=== PATIENT | male | born 1950 | race Caucasian/White ===

== ENCOUNTER 2017-12-15 09:13 | Emergency (ER) | payer MEDICARE, BC ==
[2017-12-15 10:00] VITALS: BP 141/68
[2017-12-15 11:05] LABS: ANION GAP 17.4
--- NOTE | 2017-12-15 11:07 | EDM.PDOC ---
ED HPI GENERAL MEDICAL PROBLEM - General Chief Complaint: Genitourinary Problem Stated Complaint: BLADDER NOT EMPTYING Time Seen by Provider: 12/15/17 10:35 Source of Information: Reports: Patient History Limitations: Reports: No Limitations - History of Present Illness INITIAL COMMENTS - FREE TEXT/NARRATIVE: This 67 yo male patient reports to the ED due to urinary frequency and hesitancy. The patient reports his symptoms started 2-3 days ago and have been getting worse. The patient is a dialysis patient and is scheduled for dialysis at 1130 today. The patient also reports pain in the end of his penis. Onset Date: 12/13/17 Duration: Constant Location: Reports: Other Quality: Reports: Burning Severity: Moderate Improves with: Reports: None Worsens with: Reports: None Context: Reports: Other Associated Symptoms: Reports: No Other Symptoms Penis Pain Score (Numeric/FACES): 4 - Related Data Allergies Allergy/AdvReac Type Severity Reaction Status Date / Time No Known Allergies Allergy Verified 12/15/17 09:47 Home Meds: Home Meds Allopurinol 100 mg PO BEDTIME 01/06/15 [History] Amitriptyline [Elavil] 25 mg PO BEDTIME 01/06/15 [History] Hydrocodone/Acetaminophen [Hydrocodon-Acetaminoph 2.5-325] 5 - 325 mg PO Q6HR PRN 01/06/15 [History] Insulin Lispro [HumaLOG] 15 units SQ TID 01/06/15 [History] Metoprolol Tartrate 25 mg PO BID 01/21/15 [History] Insulin Glargine,Hum.Rec.Anlog [Basaglar Kwikpen U-100] 55 units SQ BTHMEALBED 12/15/17 [History] Multivitamin [Multivitamins] 1 tab PO DAILY 12/15/17 [History] Omeprazole Magnesium [Prilosec Otc] 20 mg PO DAILY 12/15/17 [History] Sevelamer Carbonate [Renvela] 1,600 mg PO TID 12/15/17 [History] Past Medical History - Past Health History Medical/Surgical History: Denies Medical/Surgical History Cardiovascular History: Reports: Other (See Below) Other Cardiovascular History: myocardial effusions Genitourinary History: Reports: Dialysis Musculoskeletal History: Reports: Other (See Below) Other Musculoskeletal History: diabetic neuropathy Psychiatric History: Reports: None Endocrine/Metabolic History: Reports: Diabetes, Type II Immunologic History: Reports: None Oncologic (Cancer) History: Reports: None Social & Family History - Tobacco Use Smoking Status *Q: Former Smoker Used Tobacco, but Quit: Yes Month/Year Tobacco Last Used: 1969 - Living Situation & Occupation Living situation: Reports: , with Spouse Occupation: Disabled ED ROS GENERAL - Review of Systems Review Of Systems: ROS reveals no pertinent complaints other than HPI. ED EXAM, RENAL/ - Physical Exam Exam: See Below Exam Limited By: No Limitations General Appearance: Alert, WD/WN, Mild Distress Eye Exam: Bilateral Eye: EOMI, Normal Inspection, PERRL Ears: Normal External Exam, Normal Canal, Hearing Grossly Normal, Normal TMs Nose: Normal Inspection, Normal Mucosa, No Blood Throat/Mouth: Normal Inspection, Normal Lips, Normal Teeth, Normal Gums, Normal Oropharynx, Normal Voice, No Airway Compromise Head: Atraumatic, Normocephalic Neck: Normal Inspection, Supple, Non-Tender, Full Range of Motion Respiratory/Chest: No Respiratory Distress, Lungs Clear, Normal Breath Sounds, No Accessory Muscle Use, Chest Non-Tender Cardiovascular: Normal Peripheral Pulses, No Edema, No Gallop, No JVD, No Rub, Systolic Murmur (Male) Exam: Deferred Rectal (Males) Exam: Deferred Back Exam: Normal Inspection, Full Range of Motion, NT Extremities: Normal Inspection, Normal Range of Motion, Non-Tender, Normal Capillary Refill, No Pedal Edema Neurological: Alert, Oriented, CN II-XII Intact, Normal Cognition, Normal Gait, Normal Reflexes, No Motor/Sensory Deficits Psychiatric: Normal Affect, Normal Mood Skin Exam: Warm, Dry, Intact, Normal Color, No Rash Lymphatic: No Adenopathy Course - Vital Signs Last Recorded V/S: Last Vital Signs Temp 36.9 C 12/15/17 09:44 Pulse 71 12/15/17 09:44 Resp 20 12/15/17 09:44 BP 141/68 H 12/15/17 09:44 Pulse Ox 97 12/15/17 09:44 - Orders/Labs/Meds Orders: Active Orders 24 hr Category Date Time Status COMPREHENSIVE METABOLIC PN,CMP [CHEM] Urgent Lab 12/15/17 10:24 Ordered CULTURE URINE [RM] Stat Lab 12/15/17 10:40 Ordered Labs: Laboratory Tests 12/15/17 12/15/17 Range/Units 09:23 10:33 WBC 14.3 H (5.0-10.0) 10^3/uL RBC 3.75 L (4.6-6.2) 10^6/uL Hgb 11.7 L (14.0-18.0) g/dL Hct 35.5 L (40.0-54.0) % MCV 94.7 (80-100) fL MCH 31.2 (27.0-34.0) pg MCHC 33.0 (33.0-35.0) g/dL Plt Count 293 D (150-450) 10^3/uL Neut % (Auto) 78.7 H (42.2-75.2) % Lymph % (Auto) 10.1 L (20.5-50.1) % [place] % (Auto) 8.9 H (2-8) % Eos % (Auto) 2.0 (1.0-3.0) % Baso % (Auto) 0.3 (0.0-1.0) % Urine Color Yellow (YELLOW) Urine Appearance Cloudy (CLEAR) Urine pH 7.0 (5.0-9.0) Ur Specific [place] 1.015 (1.005-1.030) Urine Protein >=300 H (NEGATIVE) Urine Glucose (UA) Negative (NEGATIVE) Urine Ketones Trace H (NEGATIVE) Urine Occult Blood Moderate H (NEGATIVE) Urine Nitrite Negative (NEGATIVE) Urine Bilirubin Negative (NEGATIVE) Urine Urobilinogen 0.2 (0.2-1.0) mg/dL Ur Leukocyte Esterase Moderate H (NEGATIVE) Urine RBC 75-100 H /HPF Urine WBC >100 H (0-5/HPF) /HPF Ur Epithelial Cells Few /HPF Urine Bacteria Moderate H (0-FEW/HPF) /HPF Urinalysis Comment See note - Re-Assessments/Exams Free Text/Narrative Re-Assessment/Exam: 12/15/17 11:07 Discussed the history, examination and lab results with KENA Luke with Dr. Hicks's office. Departure - Departure Time of Disposition: 11:09 Disposition: Home, Self-Care 01 Condition: Fair Clinical Impression: UTI, Urinary tract infectious disease - Discharge Information *PRESCRIPTION DRUG MONITORING PROGRAM REVIEWED*: Not Applicable *COPY OF PRESCRIPTION DRUG MONITORING REPORT IN PATIENT ZAY: Not Applicable Instructions: Urinary Tract Infection, Adult, [id number] Care Plan Goals: The patient was advised of the examination and lab results during the visit. The patient was given a script for Cipro (250 mg) to take 1 by mouth 2 times per day (after dialysis) for 5 days. If the patient has any additional symptoms or concerns, the patient should follow-up with his primary care facility or return to the emergency department. - My Orders Last 24 Hours: My Active Orders 12/15/17 10:24 COMPREHENSIVE METABOLIC PN,CMP [CHEM] Urgent 12/15/17 10:40 CULTURE URINE [RM] Stat - Assessment/Plan Last 24 Hours: My Active Orders 12/15/17 10:24 COMPREHENSIVE METABOLIC PN,CMP [CHEM] Urgent 12/15/17 10:40 CULTURE URINE [RM] Stat
== END 2017-12-15 11:17 | disposition home or self-care (01) ==
LOC: EEVIPCON 09:13 → DL.ED 09:13
DX: N39.0 Urinary tract infection, site not specified (principal); E11.40 Type 2 diabetes mellitus with diabetic neuropathy, unspecified; Z87.891 Personal history of nicotine dependence
CPT/HCPCS: 36415; 80053; 81001; 85025; 87086; 87186; 99283

== ENCOUNTER 2018-01-11 07:39 | Emergency (ER) | payer MEDICARE, BC ==
[2018-01-11 07:46] VITALS: BP 152/71
[2018-01-11 08:52] LABS: ANION GAP 15.9
--- NOTE | 2018-01-11 09:06 | EDM.PDOC ---
ED HPI GENERAL MEDICAL PROBLEM - General Chief Complaint: Respiratory Problem Stated Complaint: hard time breathing [id number] Time Seen by Provider: 01/11/18 07:57 Source of Information: Reports: Patient, RN, RN Notes Reviewed History Limitations: Reports: No Limitations - History of Present Illness INITIAL COMMENTS - FREE TEXT/NARRATIVE: Patient presented to ER with complaint of shortness of breath for the past few weeks. He states last night at 0300, he felt as if he couldn't get a deep breath in, and had a "twinge" in the right upper chest. He states he does hemodialysis on Friday, Friday and Friday. He was recently started on Furosemide as he still does make some urine. Onset: Gradual Duration: Getting Worse Location: Reports: Chest Quality: Reports: Ache Severity: Mild Improves with: Reports: None Worsens with: Reports: None Associated Symptoms: Reports: No Other Symptoms - Related Data Allergies Allergy/AdvReac Type Severity Reaction Status Date / Time No Known Allergies Allergy Verified 01/11/18 07:46 Home Meds: Home Meds Allopurinol 100 mg PO BEDTIME 01/06/15 [History] Insulin Lispro [HumaLOG] 15 units SQ TID 01/06/15 [History] Metoprolol Tartrate 25 mg PO BID 01/21/15 [History] Insulin Glargine,Hum.Rec.Anlog [Basaglar Kwikpen U-100] 55 units SQ BTHMEALBED 12/15/17 [History] Multivitamin [Multivitamins] 1 tab PO DAILY 12/15/17 [History] Cinacalcet [Sensipar] 30 mg PO ASDIRECTED 12/17/17 [History] Clopidogrel [Plavix] 75 mg PO DAILY 12/17/17 [History] Furosemide [Lasix] 60 mg PO DAILY 01/11/18 [History] Past Medical History - Past Health History Medical/Surgical History: Denies Medical/Surgical History HEENT History: Reports: Impaired Vision Cardiovascular History: Reports: Afib, Other (See Below) Other Cardiovascular History: myocardial effusions Genitourinary History: Reports: Dialysis Musculoskeletal History: Reports: Gout, Other (See Below) Other Musculoskeletal History: diabetic neuropathy Psychiatric History: Reports: None Endocrine/Metabolic History: Reports: Diabetes, Type II Immunologic History: Reports: None Oncologic (Cancer) History: Reports: None - Past Surgical History GI Surgical History: Reports: Cholecystectomy Social & Family History - Tobacco Use Smoking Status *Q: Former Smoker Used Tobacco, but Quit: Yes Month/Year Tobacco Last Used: 1973 - Recreational Drug Use Recreational Drug Use: No - Living Situation & Occupation Living situation: Reports: , with Spouse Occupation: Disabled ED ROS GENERAL - Review of Systems Review Of Systems: ROS reveals no pertinent complaints other than HPI. ED EXAM, GENERAL - Physical Exam Exam: See Below Exam Limited By: No Limitations General Appearance: Alert, WD/WN, No Apparent Distress Eye Exam: Bilateral Eye: EOMI, Normal Inspection, PERRL Ears: Normal External Exam, Normal Canal, Hearing Grossly Normal, Normal TMs Nose: Normal Inspection, Normal Mucosa, No Blood Throat/Mouth: Normal Inspection, Normal Lips, Normal Teeth, Normal Gums, Normal Oropharynx, Normal Voice, No Airway Compromise Head: Atraumatic, Normocephalic Neck: Normal Inspection, Supple, Non-Tender, Full Range of Motion Respiratory/Chest: Crackles (right base) Cardiovascular: Normal Peripheral Pulses, Regular Rate, Rhythm, No Edema, No Gallop, No JVD, No Murmur, No Rub GI/Abdominal: Normal Bowel Sounds, Soft, Non-Tender, No Organomegaly, No Distention, No Abnormal Bruit, No Mass (Male) Exam: Deferred Rectal (Males) Exam: Deferred Back Exam: Normal Inspection, Full Range of Motion, NT Extremities: Normal Inspection, Normal Range of Motion, Non-Tender, Normal Capillary Refill, No Pedal Edema Neurological: Alert, Oriented, CN II-XII Intact, Normal Cognition, Normal Gait, Normal Reflexes, No Motor/Sensory Deficits Psychiatric: Normal Affect, Normal Mood Skin Exam: Warm, Dry, Intact, Normal Color, No Rash Lymphatic: No Adenopathy Course - Vital Signs Last Recorded V/S: Last Vital Signs Temp 96.5 F 01/11/18 07:42 Pulse 72 01/11/18 07:42 Resp 18 01/11/18 07:42 BP 152/71 H 01/11/18 07:42 Pulse Ox 100 01/11/18 07:42 - Orders/Labs/Meds Orders: Active Orders 24 hr Category Date Time Status Chest 2V [CR] Urgent Exams 01/11/18 08:13 Taken Labs: Laboratory Tests 09/23/18 09/23/18 Range/Units 08:28 08:28 WBC 10.4 H (5.0-10.0) 10^3/uL RBC 3.62 L (4.6-6.2) 10^6/uL Hgb 11.2 L (14.0-18.0) g/dL Hct 34.5 L (40.0-54.0) % MCV 95.3 (80-100) fL MCH 30.9 (27.0-34.0) pg MCHC 32.5 L (33.0-35.0) g/dL Plt Count 212 D (150-450) 10^3/uL Neut % (Auto) 75.1 (42.2-75.2) % Lymph % (Auto) 13.4 L (20.5-50.1) % [place] % (Auto) 8.2 H (2-8) % Eos % (Auto) 3.0 (1.0-3.0) % Baso % (Auto) 0.3 (0.0-1.0) % Sodium 135 (135-145) mmol/L Potassium 4.9 (3.6-5.0) mmol/L Chloride 96 L (101-111) mmol/L Carbon Dioxide 28.0 (21.0-31.0) mmol/L Anion Gap 15.9 BUN 28 H (7-18) mg/dL Creatinine 5.9 H D (0.6-1.3) mg/dL Est Cr Clr Drug Dosing 13.15 mL/min Estimated GFR (MDRD) 10 BUN/Creatinine Ratio 4.74 Glucose 94 (74-105) mg/dL Calcium 8.5 (8.4-10.2) mg/dl Total Bilirubin 0.6 (0.2-1.0) mg/dL AST 23 (10-42) IU/L ALT 15 (10-60) IU/L Alkaline Phosphatase 71 (42-121) IU/L B-Natriuretic Peptide 301 H (0-100) pg/ml Total Protein 7.2 (6.7-8.2) g/dl Albumin 3.7 (3.2-5.5) g/dl Globulin 3.5 Albumin/Globulin Ratio 1.06 - Radiology Interpretation Free Text/Narrative:: Chest xray: IMPRESSION: Cardiomegaly. Thank you for allowing us to participate in the care of your patient. Dictated and Authenticated by: Gibran Portillo MD See rad report Departure - Departure Time of Disposition: 09:44 Disposition: Home, Self-Care 01 Condition: Good Clinical Impression: Shortness of breath - Discharge Information *PRESCRIPTION DRUG MONITORING PROGRAM REVIEWED*: No *COPY OF PRESCRIPTION DRUG MONITORING REPORT IN PATIENT ZAY: No Instructions: Shortness of Breath, Adult, [id number] Forms: ED Department Discharge Additional Instructions: Continue taking medications as prescribed Follow up with your primary care facility - My Orders Last 24 Hours: My Active Orders 01/11/18 08:13 Chest 2V [CR] Urgent - Assessment/Plan Last 24 Hours: My Active Orders 01/11/18 08:13 Chest 2V [CR] Urgent
== END 2018-01-11 09:49 | disposition home or self-care (01) ==
LOC: DL.ED 07:39
DX: R06.02 Shortness of breath (principal); Z87.891 Personal history of nicotine dependence
CPT/HCPCS: 36415; 71046; 80053; 83880; 85025; 99283; 99285

== ENCOUNTER 2019-07-08 10:41 | Emergency (ER) | payer MEDICARE, BC ==
[2019-07-08 10:49] VITALS: BP 163/70; PULSE 69
--- NOTE | 2019-07-08 12:48 | CT ---
EXAMINATION: Cervical Spine wo Cont SEX: Male AGE: 68 years CLINICAL HISTORY: 68-year-old anticoagulated (Plavix) male injured in a FALL (ice). Scan technique: Volume acquisition of data emergency unenhanced CT scan of the cervical spine obtained with patient lying supine on the Siemens multi slice CT scanner [place], [place]. All data archived in the PACS system for storage, reformatting axial/sagittal/coronal planes and study (bone/soft tissue windows). Interpretation: Good bone mineral density for age and gender. Chronic reactive arthritic changes atlantoaxial joint. Chronic severe multilevel cervical disc disease involving C4-5 C5-6 and C6-7 levels i.e. interspace narrowing endplate sclerosis and hypertrophic marginal/uncinate spur formation. No sign of prevertebral soft tissue swelling, acute cervical fracture, spondylolisthesis or jumped locked facets (extensive facet joint sclerosis identified at several levels). No cervical rib anomalies. No fractures of first cervical ribs. Lung apices clear. CONCLUSION: Chronic severe multilevel disc disease and hypertrophic arthritic changes of the spine. No cervical fracture or dislocation.
--- NOTE | 2019-07-08 12:52 | CT ---
EXAMINATION: Head wo Cont SEX: Male AGE: 68 years CLINICAL HISTORY: 68-year-old male injured in fall, on ice, who significantly is on anticoagulant (Plavix) therapy. Scan technique: Volume acquisition of data emergency unenhanced CT scan of the head and brain obtained with patient lying supine on the Siemens multi slice scanner [place], [place]. All data archived in the PAC system for storage, reformatting axial/sagittal/coronal planes and study (bone/brain windows). No comparison exams of the head immediately available. Interpretation: Ischemic infarct white matter parietal lobe convexity on the left. Other scattered areas of multi-infarct ischemic disease throughout the periventricular matter of both cerebral hemispheres. 2. Atrophy consistent with age symmetric and underlying mirror-image normal ventricular system. 3. Uniformly thick bony calvarium without sign of skull fracture, underlying/contrecoup brain contusion, or abnormal extracerebral/intracranial epidural or subdural hematoma. 4. Symmetric clear pneumatization of the paranasal and mastoid sinuses. No basal skull fracture. 5. No supratentorial or posterior fossa mass lesion (physiologic midline and symmetric choroid plexus calcifications). 6. Cerebellum and brainstem unremarkable. 7. No sign of acute intracerebral, intraventricular or subarachnoid bleed. CONCLUSION: Multi-infarct ischemic disease. No sign of skull fracture or closed head injury (specifically no intracranial bleed).
[2019-07-08] MEDS ORDERED: Morphine 2 MG/ML Syringe IM ONE (12:53)
[2019-07-08] MEDS ORDERED: Ondansetron 4 MG Tab.DIS PO ONE (12:53)
--- NOTE | 2019-07-08 13:06 | EDM.PDOC ---
ED HPI GENERAL MEDICAL PROBLEM - General Chief Complaint: Back Pain or Injury Stated Complaint: UNKNOWN-AMBULANCE Time Seen by Provider: 07/08/19 10:45 Source of Information: Reports: Patient, RN History Limitations: Reports: No Limitations - History of Present Illness INITIAL COMMENTS - FREE TEXT/NARRATIVE: mid to low back pain, fell while snow blowing on to back, no loss of consciousness, pain midline and along sides. took 3 tylenol and 2 hydrocodone prior to arrival and beginning to help. Middle Back Pain Score (Numeric/FACES): 10 - Related Data Allergies Allergy/AdvReac Type Severity Reaction Status Date / Time No Known Allergies Allergy Verified 07/08/19 10:50 Home Meds: Home Meds Insulin Lispro [HumaLOG] 15 units SQ TID 01/06/15 [History] allopurinoL [Allopurinol] 100 mg PO BEDTIME 01/06/15 [History] Metoprolol Tartrate 25 mg PO BID 01/21/15 [History] Insulin Glargine,Hum.Rec.Anlog [Basaglar Kwikpen U-100] 55 units SQ BTHMEALBED 12/15/17 [History] Multivitamin [Multivitamins] 1 tab PO DAILY 12/15/17 [History] Cinacalcet [Sensipar] 30 mg PO ASDIRECTED 12/17/17 [History] Clopidogrel [Plavix] 75 mg PO DAILY 12/17/17 [History] Amitriptyline [Elavil] 25 mg PO BEDTIME 07/08/19 [History] Furosemide 80 mg PO ASDIRECTED 07/08/19 [History] Hydrocodone/Acetaminophen [Hydrocodon-Acetaminophen 5-325] 1 tab PO Q6HR PRN [History] Pantoprazole Sodium [Protonix] 20 mg PO DAILY 07/08/19 [History] Sevelamer Carbonate [Renvela] 1,600 mg PO TIDMEALS 07/08/19 [History] Past Medical History - Past Health History Medical/Surgical History: Denies Medical/Surgical History HEENT History: Reports: Impaired Vision Cardiovascular History: Reports: Afib, Other (See Below) Other Cardiovascular History: myocardial effusions Genitourinary History: Reports: Dialysis Musculoskeletal History: Reports: Gout, Other (See Below) Other Musculoskeletal History: diabetic neuropathy Psychiatric History: Reports: None Endocrine/Metabolic History: Reports: Diabetes, Type II Immunologic History: Reports: None Oncologic (Cancer) History: Reports: None - Past Surgical History GI Surgical History: Reports: Cholecystectomy Social & Family History - Tobacco Use Smoking Status *Q: Former Smoker Used Tobacco, but Quit: Yes Month/Year Tobacco Last Used: 1970 - Caffeine Use Caffeine Use: Reports: None - Recreational Drug Use Recreational Drug Use: No - Living Situation & Occupation Living situation: Reports: , with Spouse Occupation: Disabled ED ROS GENERAL - Review of Systems Review Of Systems: Comprehensive ROS is negative, except as noted in HPI. ED EXAM,LOWER BACK PAIN/INJURY - Physical Exam Exam: See Below Exam Limited By: No Limitations General Appearance: Alert, Moderate Distress Eye Exam: Bilateral Eye: EOMI, PERRL Ears: Normal External Exam Nose: Normal Inspection Throat/Mouth: Normal Inspection, Normal Oropharynx, Normal Voice Head: Atraumatic, Normocephalic Neck: Normal Inspection, Full Range of Motion. No: Tender Lateral, Tender Midline Respiratory/Chest: No Respiratory Distress Cardiovascular: Normal Peripheral Pulses, Regular Rate, Rhythm GI/Abdominal: Normal Bowel Sounds, Soft Back Exam: Decreased Range of Motion, Muscle Spasm (mid thoracic and lumbar), Paraspinal Tenderness. No: Full Range of Motion Extremities: Normal Inspection, Normal Range of Motion, Other (dialysis fistula right forearm) Neurological: Alert, Normal Plantar Flexion, Oriented x 3 Psychiatric: Normal Affect Skin Exam: Warm, Dry, Intact, Normal Color Course - Vital Signs Last Recorded V/S: Last Vital Signs Temp 97 F 07/08/19 10:41 Pulse 69 07/08/19 10:41 Resp 20 07/08/19 10:41 BP 163/70 H 07/08/19 10:41 Pulse Ox 100 07/08/19 10:41 - Orders/Labs/Meds Orders: Active Orders 24 hr Category Date Time Status Lumbar Spine wo Cont [CT] Urgent Exams 07/08/19 10:47 Taken Meds: Medications Discontinued Medications Generic Name Dose Route Start Last Admin Trade Name Freq PRN Reason Stop Dose Admin Morphine Sulfate 4 mg 07/08/19 12:53 07/08/19 13:03 Morphine IM 07/08/19 12:54 Not Given ONETIME ONE Morphine Sulfate 4 mg 07/08/19 13:00 07/08/19 13:04 Morphine IM 07/08/19 13:01 4 mg ONETIME ONE Administration Ondansetron HCl 4 mg 07/08/19 12:53 07/08/19 13:04 Zofran Odt PO 07/08/19 12:54 4 mg ONETIME ONE Administration Orphenadrine Citrate 60 mg 07/08/19 12:51 07/08/19 13:04 Norflex IM 07/08/19 12:52 60 mg ONETIME ONE Administration Departure - Departure Time of Disposition: 13:06 Disposition: Home, Self-Care 01 Condition: Good Clinical Impression: Fall Qualifiers: Encounter type: initial encounter Qualified Code(s): W19.XXXA - Unspecified fall, initial encounter Back pain Qualifiers: Back pain location: back pain in other location Chronicity: acute Qualified Code(s): M54.9 - Dorsalgia, unspecified - Discharge Information *PRESCRIPTION DRUG MONITORING PROGRAM REVIEWED*: No *COPY OF PRESCRIPTION DRUG MONITORING REPORT IN PATIENT ZAY: No Instructions: Muscle Strain, [id number] Referrals: Mary Kay Clifford NP [Primary Care Provider] - Forms: ED Department Discharge Additional Instructions: rest light activity use walker to aid in balance and decrease fall risk zofran ODT 4mg one every 6 hours as needed for nausea flexeril 1/2 to one tablet every 8 hours as needed for muscle spasm heat or ice to back lidocaine patch to affected area follow up if increased pain numbness or tingling sensation Sepsis Event Note - Evaluation Sepsis Screening Result: No Definite Risk - Focused Exam Vital Signs: Vital Signs Temp Pulse Resp BP Pulse Ox 07/08/19 10:41 97 F 69 20 163/70 H 100 Date Exam was Performed: 07/08/19 Time Exam was Performed: 16:37 - My Orders Last 24 Hours: My Active Orders 07/08/19 10:47 Lumbar Spine wo Cont [CT] Urgent - Assessment/Plan Last 24 Hours: My Active Orders 07/08/19 10:47 Lumbar Spine wo Cont [CT] Urgent
--- NOTE | 2019-07-09 10:03 | CT ---
EXAMINATION: Thoracic Spine wo Cont SEX: Male AGE: 68 years CLINICAL HISTORY: 68-year-old high risk anticoagulated (Plavix) male recently injured (fall on ice). "No evidence closed head injury or cervical fracture". Rule out fracture thoracic and/or lumbar spine. Scan technique: Volume acquisition of data emergency unenhanced CT scan of the thoracic and lumbar spine obtained with patient lying supine on the Siemens multislice scanner [place], [place]. All data archived in the PACS system for storage, reformatting axial/sagittal/coronal planes and study (bone/soft tissue windows). Interpretation: 1. Osteoporosis and mild kyphoscoliosis dorsal spine. 2. Atheromatous calcifications outlining normal caliber thoracic and abdominal aorta. 3. Chronic multilevel disc disease with reactive hypertrophic spondylosis lower cervical spine, nearly all levels of the thoracic spine and L3-4, L4-5 levels of the lumbar spine. Posterior ribs and dorsal spinous processes unremarkable. 4. No sign of pathologic skeletal lesion. 5. No fracture or dislocation thoracic or lumbar spine. 6. Symmetric spacing normal-appearing SI joints. CONCLUSION: Chronic severe multilevel disc disease (see above). No fracture or dislocation thoracic or lumbar spine. INTERPRETATION: 1. CONCLUSION:
== END 2019-07-08 13:23 | disposition home or self-care (01) ==
LOC: DL.ED 10:41
DX: M62.830 Muscle spasm of back (principal); M54.5 Low back pain; M54.6 Pain in thoracic spine; I48.91 Unspecified atrial fibrillation; E11.40 Type 2 diabetes mellitus with diabetic neuropathy, unspecified; M10.9 Gout, unspecified; Z79.899 Other long term (current) drug therapy; Z90.49 Acquired absence of other specified parts of digestive tract; Z79.4 Long term (current) use of insulin; Z87.891 Personal history of nicotine dependence; W19.XXXA Unspecified fall, initial encounter; Y93.29 Activity, other involving ice and snow
CPT/HCPCS: 70450; 72125; 72128; 72131; 96372; 99283; 99284-25; A9270-GY; J2270; J2360

== ENCOUNTER 2020-03-11 08:27 | Emergency (ER) | payer MEDICARE, BC ==
[2020-03-11 10:14] VITALS: BP 109/61; PULSE 74
--- NOTE | 2020-03-11 10:20 | EDM.PDOC ---
ED HPI GENERAL MEDICAL PROBLEM - General Chief Complaint: Respiratory Problem Stated Complaint: TROUBLE BREATHING FEELS LIKE HE IS GEORGE FAINT Time Seen by Provider: 03/11/20 08:45 Source of Information: Reports: Patient, RN, RN Notes Reviewed History Limitations: Reports: No Limitations - History of Present Illness INITIAL COMMENTS - FREE TEXT/NARRATIVE: Pt presents to ER with c/o dizziness and SOB this am. Patient states he has had a few of these episodes in the past few days. States he felt as though he was going to pass out when he was up and about this morning. Patient states last dialysis was yesterday and he did run his full run. Patient states he had a pinpoint area of brief chest pain when standing up this am. Admits to slight cough infrequently. Denies fever, chills, vomiting. Admits to diarrhea yesterday after dialysis, along with waves of nausea. Patient states he has not been tested for Covid in a "couple months". Onset: Today - Related Data Allergies Allergy/AdvReac Type Severity Reaction Status Date / Time No Known Allergies Allergy Verified 03/11/20 08:36 Home Meds: Home Meds Insulin Lispro [HumaLOG] 15 units SQ TID 01/06/15 [History] allopurinoL [Allopurinol] 100 mg PO BEDTIME 01/06/15 [History] Metoprolol Tartrate 25 mg PO BID 01/21/15 [History] Insulin Glargine,Hum.Rec.Anlog [Basaglar Kwikpen U-100] 55 units SQ BTHMEALBED 12/15/17 [History] Multivitamin [Multivitamins] 1 tab PO DAILY 12/15/17 [History] Cinacalcet [Sensipar] 30 mg PO ASDIRECTED 12/17/17 [History] Clopidogrel [Plavix] 75 mg PO DAILY 12/17/17 [History] Amitriptyline [Elavil] 25 mg PO BEDTIME 07/08/19 [History] Furosemide 80 mg PO ASDIRECTED 07/08/19 [History] Hydrocodone/Acetaminophen [Hydrocodon-Acetaminophen 5-325] 1 tab PO Q6HR PRN 07/08/19 [History] Pantoprazole Sodium [Protonix] 20 mg PO DAILY 07/08/19 [History] Sevelamer Carbonate [Renvela] 1,600 mg PO TIDMEALS 07/08/19 [History] Past Medical History - Past Health History Medical/Surgical History: Denies Medical/Surgical History HEENT History: Reports: Impaired Vision Cardiovascular History: Reports: Afib, Other (See Below) Other Cardiovascular History: myocardial effusions Respiratory History: Reports: None Gastrointestinal History: Reports: GERD, PUD Genitourinary History: Reports: Dialysis Musculoskeletal History: Reports: Gout, Other (See Below) Other Musculoskeletal History: diabetic neuropathy Neurological History: Reports: Neuropathy, Diabetic Psychiatric History: Reports: None Endocrine/Metabolic History: Reports: Diabetes, Type II, Obesity/BMI 30+ Hematologic History: Reports: None Immunologic History: Reports: None Oncologic (Cancer) History: Reports: None Dermatologic History: Reports: None - Infectious Disease History Infectious Disease History: Reports: None - Past Surgical History GI Surgical History: Reports: Cholecystectomy Social & Family History - Family History Family Medical History: Unobtainable - Tobacco Use Tobacco Use Status *Q: Former Tobacco User Used Tobacco, but Quit: Yes Month/Year Tobacco Last Used: - Caffeine Use Caffeine Use: Reports: Coffee - Recreational Drug Use Recreational Drug Use: No - Living Situation & Occupation Living situation: Reports: , with Spouse Occupation: Disabled ED ROS GENERAL - Review of Systems Review Of Systems: Comprehensive ROS is negative, except as noted in HPI. ED EXAM, GENERAL - Physical Exam Exam: See Below Exam Limited By: No Limitations General Appearance: Alert, WD/WN, No Apparent Distress Eye Exam: Bilateral Eye: EOMI, Normal Inspection Ears: Normal External Exam, Hearing Grossly Normal Nose: Normal Inspection Throat/Mouth: Normal Inspection, Normal Voice, No Airway Compromise Head: Atraumatic, Normocephalic Neck: Normal Inspection, Supple, Non-Tender, Full Range of Motion Respiratory/Chest: No Respiratory Distress, No Accessory Muscle Use, Chest Non- Tender, Decreased Breath Sounds, Crackles (bases bilaterally) Cardiovascular: Normal Peripheral Pulses, No Edema, No Gallop, No JVD, No Murmur, No Rub, Irregularly Irregular Peripheral Pulses: 2+: Radial (L), Radial (R) GI/Abdominal: Normal Bowel Sounds, Soft, Non-Tender (Male) Exam: Deferred Rectal (Males) Exam: Deferred Back Exam: Normal Inspection, Full Range of Motion, NT Extremities: Normal Inspection, Normal Range of Motion, Non-Tender, Normal Capillary Refill, No Pedal Edema Neurological: Alert, Oriented, CN II-XII Intact, Normal Cognition, Normal Gait, Normal Reflexes, No Motor/Sensory Deficits Psychiatric: Normal Affect, Normal Mood Skin Exam: Warm, Dry, Intact, Normal Color, No Rash Lymphatic: No Adenopathy Course - Vital Signs Last Recorded V/S: Last Vital Signs Temp 97.3 F 03/11/20 08:37 Pulse 74 03/11/20 08:37 Resp 18 03/11/20 08:37 BP 109/61 03/11/20 08:37 Pulse Ox 98 03/11/20 08:37 - Orders/Labs/Meds Orders: Active Orders 24 hr Category Date Time Status Chest 1V Frontal [CR] Routine Exams 03/11/20 Taken CORONAVIRUS COVID-19 PCR PHL Routine Lab 03/11/20 08:48 Received INFLUENZA A+B AG SCREEN [RM] Routine Lab 03/11/20 09:45 Received Labs: Laboratory Tests 03/11/20 03/11/20 03/11/20 Range/Units 09:45 09:45 09:45 WBC 2.9 L (5.0-10.0) 10^3/uL RBC 3.79 L (4.6-6.2) 10^6/uL Hgb 11.8 L (14.0-18.0) g/dL Hct 35.3 L (40.0-54.0) % MCV 93.1 (80-100) fL MCH 31.1 (27.0-34.0) pg MCHC 33.4 (33.0-35.0) g/dL Plt Count 134 L D (150-450) 10^3/uL Neut % (Auto) 68.0 (42.2-75.2) % Lymph % (Auto) 12.6 L (20.5-50.1) % [place] % (Auto) 18.4 H (2-8) % Eos % (Auto) 0.7 L (1.0-3.0) % Baso % (Auto) 0.3 (0.0-1.0) % D-Dimer, Quantitative 373 (0-400) ng/mL Sodium 139 (136-145) mmol/L Potassium 3.8 (3.5-5.1) mmol/L Chloride 99 (98-107) mmol/L Carbon Dioxide 31 (21-32) mmol/L Anion Gap 12.8 (7-13) mEq/L BUN 21 H (7-18) mg/dL Creatinine 6.18 H* (0.70-1.30) mg/dL Est Cr Clr Drug Dosing 12.21 mL/min Estimated GFR (MDRD) 9 BUN/Creatinine Ratio 3.4 (No establ ref range) Glucose 93 (74-99) mg/dL Calcium 8.3 L (8.5-10.1) mg/dL Total Bilirubin 0.5 (0.2-1.0) mg/dL AST 21 (15-37) U/L ALT 14 L (16-63) U/L Alkaline Phosphatase 70 (46-116) U/L Troponin I 0.040 (0.000-0.056) ng/mL C-Reactive Protein 6.5 H (0.0-0.9) mg/dL Total Protein 6.2 L (6.4-8.2) g/dL Albumin 2.6 L (3.4-5.0) g/dL Globulin 3.6 Albumin/Globulin Ratio 0.72 - Radiology Interpretation Free Text/Narrative:: Chest xray; PROCEDURE INFORMATION: Exam: XR Chest, 1 View Exam date and time: 03/11/2020 9:51 AM Age: 69 years (approx. age) old Clinical indication: Chest pain TECHNIQUE: Imaging protocol: XR of the chest Views: 1 view. COMPARISON: No relevant prior studies available. FINDINGS: Lungs: There are mild bilateral lower lobe airspace opacities, less well visualized at the left lung base. Pleural space: Unremarkable. No pleural effusion. No pneumothorax. Heart/Mediastinum: The mediastinal contour is normal. There is atherosclerotic calcification of the aorta. The cardiac structures are normal. Bones/joints: The skeletal structures and soft tissues show no evidence of fracture or other acute processes. There is mild bilateral acromioclavicular arthropathy. IMPRESSION: 1. Mild bilateral lower lobe airspace opacities. 2. Small bilateral lung nodules probably granulomatous in origin. Thank you for allowing us to participate in the care of your patient. Dictated and Authenticated by: Calista Astudillo MD 03/11/2020 10:21 AM Central Time ([place] & [place]) See rad report Departure - Departure Time of Disposition: 10:22 Disposition: Home, Self-Care 01 Condition: Fair Clinical Impression: Influenza B - Discharge Information *PRESCRIPTION DRUG MONITORING PROGRAM REVIEWED*: No *COPY OF PRESCRIPTION DRUG MONITORING REPORT IN PATIENT ZAY: No Instructions: Shortness of Breath, Adult, [id number], Influenza, Adult, [id number], Viral Respiratory Infection, [id number] Referrals: Mary Kay Clifford NP [Primary Care Provider] - Forms: ED Department Discharge Additional Instructions: Follow-up with your primary care provider if no improvement Rest May use Tylenol as directed for pain/fever Covid test is pending, quarantine until you get results back Sepsis Event Note (ED) - Evaluation Sepsis Screening Result: No Definite Risk - Focused Exam Vital Signs: Vital Signs Temp Pulse Resp BP Pulse Ox 03/11/20 08:37 97.3 F 74 18 109/61 98 - My Orders Last 24 Hours: My Active Orders 03/11/20 Chest 1V Frontal [CR] Routine 03/11/20 08:48 CORONAVIRUS COVID-19 PCR PHL Routine 03/11/20 09:45 INFLUENZA A+B AG SCREEN [RM] Routine - Assessment/Plan Last 24 Hours: My Active Orders 03/11/20 Chest 1V Frontal [CR] Routine 03/11/20 08:48 CORONAVIRUS COVID-19 PCR PHL Routine 03/11/20 09:45 INFLUENZA A+B AG SCREEN [RM] Routine
[2020-03-11 11:15] LABS: ANION GAP 12.8 mEq/L (7-13)
== END 2020-03-11 10:36 | disposition home or self-care (01) ==
LOC: DL.ED 08:27
DX: J10.1 Influenza due to other identified influenza virus with other respiratory manifestations (principal); U07.1 COVID-19; I48.91 Unspecified atrial fibrillation; K21.9 Gastro-esophageal reflux disease without esophagitis; M10.9 Gout, unspecified; E11.40 Type 2 diabetes mellitus with diabetic neuropathy, unspecified; E66.9 Obesity, unspecified; Z79.4 Long term (current) use of insulin; Z79.02 Long term (current) use of antithrombotics/antiplatelets; Z79.899 Other long term (current) drug therapy; Z87.891 Personal history of nicotine dependence; Z99.2 Dependence on renal dialysis
CPT/HCPCS: 36415; 71045; 80053; 84484; 85025; 85379; 86140; 87804; 99285; U0002

== ENCOUNTER 2020-03-15 21:38 | Emergency (ER) | payer MEDICARE, BC ==
[2020-03-15 22:28] VITALS: BP 133/68; PULSE 60
[2020-03-15 22:36] LABS: ANION GAP 16.3 mEq/L (7-13)
[2020-03-15] MEDS ORDERED: 50% Dextrose in Water 50 ML Syringe ONE (22:41)
--- NOTE | 2020-03-15 23:30 | CR ---
PROCEDURE INFORMATION: Exam: XR Chest, 1 View Exam date and time: 03/15/2020 11:16 PM Age: 69 years old Clinical indication: Other: Chest pain TECHNIQUE: Imaging protocol: XR of the chest Views: 1 view. COMPARISON: CR Chest 1V Frontal 03/11/2020 9:51 AM FINDINGS: Lungs: There is pulmonary vascular congestion. Patchy consolidation is seen at the lung bases bilaterally. Pleural space: Unremarkable. No pleural effusion. No pneumothorax. Heart/Mediastinum: Enlarged cardiac silhouette. Vasculature: The thoracic aorta is tortuous and ectatic. Diaphragm: The right hemidiaphragm is elevated. Bones/joints: Unremarkable. IMPRESSION: Enlarged cardiac silhouette. Pulmonary vascular congestion and bilateral basilar patchy consolidation.
--- NOTE | 2020-03-15 23:55 | EDM.PDOC ---
ED HPI GENERAL MEDICAL PROBLEM - General Chief Complaint: Respiratory Problem Stated Complaint: COVID POS - OXYGEN LEVEL IS LOW Time Seen by Provider: 03/15/20 22:15 Source of Information: Reports: Patient, Family, RN, RN Notes Reviewed History Limitations: Reports: Respiratory Distress - History of Present Illness INITIAL COMMENTS - FREE TEXT/NARRATIVE: Patient presents to ER with complaint of low oxygen saturation, shortness of breath. Patient was seen on March 11, diagnosed with influenza B and COVID- 19. Patient is a chronic kidney disease patient on chronic hemodialysis. Patient states his last hemodialysis run was today. states when she picked the patient up from dialysis this morning, dialysis staff stated they thought he may have been somewhat confused. She states at home the confusion increased. She states he was very sleepy today. States she had a sat monitor at home, checked his oxygen saturation and it was in the 80s. Patient does not have oxygen at home. Upon arrival to the ER patient is very lethargic, does respond to voice, is oriented oxygen saturation on room air 80%. states patient is DNR/DNI, states they have done advanced directives, unknown if this is on file. Onset: Today - Related Data Allergies Allergy/AdvReac Type Severity Reaction Status Date / Time No Known Allergies Allergy Verified 03/11/20 08:36 Home Meds: Home Meds Insulin Lispro [HumaLOG] 15 units SQ TID 01/06/15 [History] allopurinoL [Allopurinol] 100 mg PO BEDTIME 01/06/15 [History] Metoprolol Tartrate 25 mg PO BID 01/21/15 [History] Insulin Glargine,Hum.Rec.Anlog [Basaglar Kwikpen U-100] 55 units SQ BTHMEALBED 12/15/17 [History] Multivitamin [Multivitamins] 1 tab PO DAILY 12/15/17 [History] Cinacalcet [Sensipar] 30 mg PO ASDIRECTED 12/17/17 [History] Clopidogrel [Plavix] 75 mg PO DAILY 12/17/17 [History] Amitriptyline [Elavil] 25 mg PO BEDTIME 07/08/19 [History] Furosemide 80 mg PO ASDIRECTED 07/08/19 [History] Hydrocodone/Acetaminophen [Hydrocodon-Acetaminophen 5-325] 1 tab PO Q6HR PRN 07/08/19 [History] Pantoprazole Sodium [Protonix] 20 mg PO DAILY 07/08/19 [History] Sevelamer Carbonate [Renvela] 1,600 mg PO TIDMEALS 07/08/19 [History] Past Medical History - Past Health History Medical/Surgical History: Denies Medical/Surgical History HEENT History: Reports: Impaired Vision Cardiovascular History: Reports: Afib, Other (See Below) Other Cardiovascular History: myocardial effusions Respiratory History: Reports: Other (See Below) Other Respiratory History: covid and influenza B Gastrointestinal History: Reports: GERD, PUD Genitourinary History: Reports: Dialysis Musculoskeletal History: Reports: Gout, Other (See Below) Other Musculoskeletal History: diabetic neuropathy Neurological History: Reports: Neuropathy, Diabetic Psychiatric History: Reports: None Endocrine/Metabolic History: Reports: Diabetes, Type II, Obesity/BMI 30+ Hematologic History: Reports: None Immunologic History: Reports: None Oncologic (Cancer) History: Reports: None Dermatologic History: Reports: None - Infectious Disease History Infectious Disease History: Reports: Influenza, Other (See Below) Other Infectious Disease History: covid - Past Surgical History GI Surgical History: Reports: Cholecystectomy Social & Family History - Family History Family Medical History: Unobtainable - Tobacco Use Tobacco Use Status *Q: Never Tobacco User - Caffeine Use Caffeine Use: Reports: Coffee - Recreational Drug Use Recreational Drug Use: No - Living Situation & Occupation Living situation: Reports: , with Spouse Occupation: Disabled ED ROS GENERAL - Review of Systems Review Of Systems: Comprehensive ROS is negative, except as noted in HPI. ED EXAM, GENERAL - Physical Exam Exam: See Below Exam Limited By: Respiratory Distress General Appearance: Lethargic Eye Exam: Bilateral Eye: EOMI, Normal Inspection Ears: Normal External Exam, Hearing Grossly Normal Nose: Normal Inspection Throat/Mouth: Normal Inspection, Normal Voice, No Airway Compromise Head: Atraumatic, Normocephalic Neck: Normal Inspection, Supple, Non-Tender, Full Range of Motion Respiratory/Chest: Chest Non-Tender, Decreased Breath Sounds, Crackles (Bases bilaterally) Cardiovascular: Normal Peripheral Pulses, Systolic Murmur, Irregularly Irregular Peripheral Pulses: 2+: Radial (L), Radial (R) GI/Abdominal: Normal Bowel Sounds, Soft, Non-Tender (Male) Exam: Deferred Rectal (Males) Exam: Deferred Back Exam: Normal Inspection, Decreased Range of Motion Extremities: Non-Tender, Normal Capillary Refill, Pedal Edema Neurological: Slow to Respond Psychiatric: Normal Affect, Normal Mood Skin Exam: Warm, Dry, Intact, Normal Color, No Rash Lymphatic: No Adenopathy Course - Vital Signs Last Recorded V/S: Last Vital Signs Temp 98.6 F 03/15/20 22:15 Pulse 60 03/15/20 22:15 Resp 26 H 03/15/20 22:15 BP 133/68 03/15/20 22:15 Pulse Ox 80 L 03/15/20 22:15 - Orders/Labs/Meds Labs: Laboratory Tests 03/15/20 03/15/20 03/15/20 Range/Units 21:54 21:54 21:54 WBC 8.7 (5.0-10.0) 10^3/uL RBC 3.74 L (4.6-6.2) 10^6/uL Hgb 11.6 L (14.0-18.0) g/dL Hct 34.2 L (40.0-54.0) % MCV 91.4 (80-100) fL MCH 31.0 (27.0-34.0) pg MCHC 33.9 (33.0-35.0) g/dL Plt Count 199 (150-450) 10^3/uL Neut % (Auto) 84.2 H (42.2-75.2) % Lymph % (Auto) 6.6 L (20.5-50.1) % [place] % (Auto) 9.2 H (2-8) % Eos % (Auto) 0.0 L (1.0-3.0) % Baso % (Auto) 0.0 (0.0-1.0) % Add Manual Diff Yes Neutrophils % (Manual) 85 H (42-75) % Lymphocytes % (Manual) 7 L (20-50) % Monocytes % (Manual) 8 (2-8) % Atypical Lymphocytes Occasional Platelet Estimate Adequate PT 17.2 H (9.0-12.0) SEC INR 1.8 H (0.9-1.2) D-Dimer, Quantitative 742 H (0-400) ng/mL Sodium 139 (136-145) mmol/L Potassium 3.3 L (3.5-5.1) mmol/L Chloride 99 (98-107) mmol/L Carbon Dioxide 27 (21-32) mmol/L Anion Gap 16.3 H (7-13) mEq/L BUN 19 H (7-18) mg/dL Creatinine 4.80 H D (0.70-1.30) mg/dL Est Cr Clr Drug Dosing 13.39 mL/min Estimated GFR (MDRD) 12 BUN/Creatinine Ratio 4.0 (No establ ref range) Glucose 39 L* (74-99) mg/dL POC Glucose (83-110) mg/dl Calcium 8.4 L (8.5-10.1) mg/dL Total Bilirubin 0.7 (0.2-1.0) mg/dL AST 44 H (15-37) U/L ALT 21 (16-63) U/L Alkaline Phosphatase 74 (46-116) U/L Lactate Dehydrogenase 373 H (85-227) U/L Troponin I 0.020 (0.000-0.056) ng/mL C-Reactive Protein 19.2 H (0.0-0.9) mg/dL B-Natriuretic Peptide 1100 H (0-100) pg/ml Total Protein 5.9 L (6.4-8.2) g/dL Albumin 2.5 L (3.4-5.0) g/dL Globulin 3.4 Albumin/Globulin Ratio 0.74 11/25/20 Range/Units 23:18 WBC (5.0-10.0) 10^3/uL RBC (4.6-6.2) 10^6/uL Hgb (14.0-18.0) g/dL Hct (40.0-54.0) % MCV (80-100) fL MCH (27.0-34.0) pg MCHC (33.0-35.0) g/dL Plt Count (150-450) 10^3/uL Neut % (Auto) (42.2-75.2) % Lymph % (Auto) (20.5-50.1) % [place] % (Auto) (2-8) % Eos % (Auto) (1.0-3.0) % Baso % (Auto) (0.0-1.0) % Add Manual Diff Neutrophils % (Manual) (42-75) % Lymphocytes % (Manual) (20-50) % Monocytes % (Manual) (2-8) % Atypical Lymphocytes Platelet Estimate PT (9.0-12.0) SEC INR (0.9-1.2) D-Dimer, Quantitative (0-400) ng/mL Sodium (136-145) mmol/L Potassium (3.5-5.1) mmol/L Chloride (98-107) mmol/L Carbon Dioxide (21-32) mmol/L Anion Gap (7-13) mEq/L BUN (7-18) mg/dL Creatinine (0.70-1.30) mg/dL Est Cr Clr Drug Dosing mL/min Estimated GFR (MDRD) BUN/Creatinine Ratio (No establ ref range) Glucose (74-99) mg/dL POC Glucose 99 (83-110) mg/dl Calcium (8.5-10.1) mg/dL Total Bilirubin (0.2-1.0) mg/dL AST (15-37) U/L ALT (16-63) U/L Alkaline Phosphatase (46-116) U/L Lactate Dehydrogenase (85-227) U/L Troponin I (0.000-0.056) ng/mL C-Reactive Protein (0.0-0.9) mg/dL B-Natriuretic Peptide (0-100) pg/ml Total Protein (6.4-8.2) g/dL Albumin (3.4-5.0) g/dL Globulin Albumin/Globulin Ratio Meds: Medications Discontinued Medications Generic Name Dose Route Start Last Admin Trade Name Freq PRN Reason Stop Dose Admin Dextrose/Water Confirm 03/15/20 22:41 03/15/20 22:43 Dextrose 50% In Water Administered 03/15/20 22:42 50 ml Dose Administration 50 ml .ROUTE .STK-MED ONE - Radiology Interpretation Free Text/Narrative:: Chest xray: PROCEDURE INFORMATION: Exam: XR Chest, 1 View Exam date and time: 03/15/2020 11:16 PM Age: 69 years old Clinical indication: Other: Chest pain TECHNIQUE: Imaging protocol: XR of the chest Views: 1 view. COMPARISON: CR Chest 1V Frontal 03/11/2020 9:51 AM FINDINGS: Lungs: There is pulmonary vascular congestion. Patchy consolidation is seen at the lung bases bilaterally. Pleural space: Unremarkable. No pleural effusion. No pneumothorax. Heart/Mediastinum: Enlarged cardiac silhouette. Vasculature: The thoracic aorta is tortuous and ectatic. Diaphragm: The right hemidiaphragm is elevated. Bones/joints: Unremarkable. IMPRESSION: Enlarged cardiac silhouette. Pulmonary vascular congestion and bilateral basilar patchy consolidation. Thank you for allowing us to participate in the care of your patient. Dictated and Authenticated by: Darrius Ding MD 03/15/2020 11:30 PM Central Time ([place] & [place]) See rad report - Re-Assessments/Exams Free Text/Narrative Re-Assessment/Exam: 03/16/20 02:46 Discussed patient case with Dr. Deluca who agreed to accept the patient for transfer to [facility]. Departure - Departure Time of Disposition: 00:04 Disposition: DC/Tfer to Acute Hospital 02 Condition: Serious Clinical Impression: Chronic kidney disease on chronic dialysis, Pneumonia due to 2019-nCoV Congestive heart failure Qualifiers: Heart failure type: systolic Heart failure chronicity: chronic Qualified Code(s): I50.22 - Chronic systolic (congestive) heart failure - Discharge Information *PRESCRIPTION DRUG MONITORING PROGRAM REVIEWED*: No *COPY OF PRESCRIPTION DRUG MONITORING REPORT IN PATIENT ZAY: No Referrals: Mary Kay Clifford NP [Primary Care Provider] - Forms: ED Department Discharge, Interfacility Transfer [facility] Sepsis Event Note (ED) - Evaluation Sepsis Screening Result: Possible Sepsis Risk - Focused Exam Vital Signs: Vital Signs Temp Pulse Resp BP Pulse Ox 03/15/20 22:15 98.6 F 60 26 H 133/68 80 L
== END 2020-03-15 23:50 ==
LOC: DL.ED 21:38
DX: U07.1 COVID-19 (principal); J12.89 Other viral pneumonia; I50.22 Chronic systolic (congestive) heart failure; E11.22 Type 2 diabetes mellitus with diabetic chronic kidney disease; N18.6 End stage renal disease; I48.91 Unspecified atrial fibrillation; K21.9 Gastro-esophageal reflux disease without esophagitis; E11.40 Type 2 diabetes mellitus with diabetic neuropathy, unspecified; E66.9 Obesity, unspecified; Z68.37 Body mass index [BMI] 37.0-37.9, adult; Z99.2 Dependence on renal dialysis; Z79.4 Long term (current) use of insulin; Z79.899 Other long term (current) drug therapy; Z79.02 Long term (current) use of antithrombotics/antiplatelets
CPT/HCPCS: 36415; 71045; 80053; 82962; 83615; 83880; 84484; 85025; 85379; 85610; 86140; 93005; 99285-25

== ENCOUNTER 2020-04-03 09:07 | Emergency (ER) | payer MEDICARE, BC ==
[2020-04-03 09:21] VITALS: BP 132/59; PULSE 70
--- NOTE | 2020-04-03 09:27 | EDM.PDOC ---
ED HPI GENERAL MEDICAL PROBLEM - General Chief Complaint: Back Pain or Injury Stated Complaint: BACK PAIN Time Seen by Provider: 04/03/20 09:12 Source of Information: Reports: Patient, RN, RN Notes Reviewed History Limitations: Reports: No Limitations - History of Present Illness INITIAL COMMENTS - FREE TEXT/NARRATIVE: Patient is a 69-year-old male who presents to ER with complaint of midthoracic pain, neck pain after a fall this morning. Patient states about 5:00 this morning he was getting into his car to come to dialysis when he slipped and fell backwards on his driveway, hitting his head, neck, and mid to upper back. Patient rates the pain an 8-10/10 in the back and neck, states his head does not hurt as much. Denies getting knocked out. Patient does admit to being on Plavix at this time. Patient did sit through his entire dialysis run, and then presented to ER. Patient states he heard "cracking" when he fell. Onset: Today, Sudden Back Pain Score (Numeric/FACES): 10 - Related Data Allergies Allergy/AdvReac Type Severity Reaction Status Date / Time No Known Allergies Allergy Verified 04/03/20 09:16 Home Meds: Home Meds Insulin Lispro [HumaLOG] 15 units SQ TID 01/06/15 [History] allopurinoL [Allopurinol] 100 mg PO BEDTIME 01/06/15 [History] Metoprolol Tartrate 25 mg PO BID 01/21/15 [History] Insulin Glargine,Hum.Rec.Anlog [Basaglar Kwikpen U-100] 55 units SQ BTHMEALBED 12/15/17 [History] Multivitamin [Multivitamins] 1 tab PO DAILY 12/15/17 [History] Cinacalcet [Sensipar] 30 mg PO ASDIRECTED 12/17/17 [History] Clopidogrel [Plavix] 75 mg PO DAILY 12/17/17 [History] Amitriptyline [Elavil] 25 mg PO BEDTIME 07/08/19 [History] Furosemide 80 mg PO ASDIRECTED 07/08/19 [History] Hydrocodone/Acetaminophen [Hydrocodon-Acetaminophen 5-325] 1 tab PO Q6HR PRN 07/08/19 [History] Pantoprazole Sodium [Protonix] 20 mg PO DAILY 03/19/20 [History] Sevelamer Carbonate [Renvela] 1,600 mg PO TIDMEALS 07/08/19 [History] Past Medical History - Past Health History Medical/Surgical History: Denies Medical/Surgical History HEENT History: Reports: Impaired Vision Cardiovascular History: Reports: Afib, Other (See Below) Other Cardiovascular History: myocardial effusions Respiratory History: Reports: Other (See Below) Other Respiratory History: covid and influenza B Gastrointestinal History: Reports: GERD, PUD Genitourinary History: Reports: Dialysis Musculoskeletal History: Reports: Gout, Other (See Below) Other Musculoskeletal History: diabetic neuropathy Neurological History: Reports: Neuropathy, Diabetic Psychiatric History: Reports: None Endocrine/Metabolic History: Reports: Diabetes, Type II, Obesity/BMI 30+ Hematologic History: Reports: None Immunologic History: Reports: None Oncologic (Cancer) History: Reports: None Dermatologic History: Reports: None - Infectious Disease History Infectious Disease History: Reports: Influenza, Other (See Below) Other Infectious Disease History: covid - Past Surgical History GI Surgical History: Reports: Cholecystectomy Social & Family History - Family History Family Medical History: Unobtainable - Caffeine Use Caffeine Use: Reports: Coffee - Living Situation & Occupation Living situation: Reports: , with Spouse Occupation: Disabled ED ROS GENERAL - Review of Systems Review Of Systems: Comprehensive ROS is negative, except as noted in HPI. ED EXAM, UPPER BACK/NECK PAIN - Physical Exam Exam: See Below Exam Limited By: No Limitations General Appearance: Alert, WD/WN, Mild Distress Eye Exam: Bilateral Eye: EOMI, Normal Inspection Ears Exam: Normal External Exam, Hearing Grossly Normal Nose Exam: Normal Inspection Throat/Mouth Exam: Normal Inspection, Normal Voice, No Airway Compromise Head Exam: Atraumatic, Normocephalic, Scalp Tenderness (occiputal) Neck Exam: Normal Alignment, Limited Range of Motion, Muscle Spasm, Paraspinous Muscle Tender Nexus Criteria: Posterior, Midline Cervical Tenderness. No: Evidence of Intoxication, Altered Level of Consciousness, Focal Neurological Deficit, Painful Distraction Injuries Cardiovascular/Respiratory: No M/R/G, Normal Peripheral Pulses, No JVD, No Respiratory Distress, Irregularly Irregular, Other (crackles to the right base, otherwise diminished) GI/Abdominal: Normal Bowel Sounds, Soft, Non-Tender, No Organomegaly, No Distention, No Abnormal Bruit, No Mass, Pelvis Stable (Male) Exam: Deferred Rectal (Males) Exam: Deferred Back Exam: Normal Inspection, Decreased Range of Motion, Paraspinal Tenderness, Vertebral Tenderness (thoracic) Extremities: Normal Inspection, Non-Tender, Normal Capillary Refill, Limited Range of Motion, Other (pedal/LE edema +1) Neurologic: state auditor II-XII nml As Tested, No Motor/Sensory Deficits, Alert, Normal Mood/Affect, Oriented x 3 Psychiatric: Normal Affect, Normal Mood Skin Exam: Normal Color, Warm/Dry Lymphatic: No Adenopathy Course - Vital Signs Last Recorded V/S: Last Vital Signs Temp 98 F 04/03/20 09:18 Pulse 70 04/03/20 09:18 Resp 20 04/03/20 09:18 BP 132/59 L 04/03/20 09:18 Pulse Ox 93 L 04/03/20 09:18 - Orders/Labs/Meds Meds: Medications Discontinued Medications Generic Name Dose Route Start Last Admin Trade Name Dickq PRN Reason Stop Dose Admin Tramadol HCl 50 mg 04/03/20 10:02 04/03/20 10:22 Ultram PO 04/03/20 10:03 50 mg ONETIME ONE Administration - Radiology Interpretation Free Text/Narrative:: CT head wo contrast: PROCEDURE INFORMATION: Exam: CT Head Without Contrast Exam date and time: 04/03/2020 10:10 AM Age: 69 years old Clinical indication: Injury or trauma; Fall; Blunt trauma (contusions or hematomas); Consciousness not specified; Additional info: Fall this morning TECHNIQUE: Imaging protocol: Computed tomography of the head without contrast. Radiation optimization: All CT scans at this facility use at least one of these dose optimization techniques: automated exposure control; mA and/or kV adjustment per patient size (includes targeted exams where dose is matched to clinical indication); or iterative reconstruction. COMPARISON: CT Head wo Cont 07/08/2019 11:44 AM FINDINGS: Brain: Prominent sulci. Patchy hypodensity of the cerebral white matter which are nonspecific but likely secondary to microangiopathic changes. Cerebral ventricles: The ventricles are prominent secondary to diffuse volume loss/atrophy. Bones/joints: Unremarkable. No acute fracture. Paranasal sinuses: Visualized sinuses are unremarkable. No fluid levels. Mastoid air cells: Visualized mastoid air cells are well aerated. Soft tissues: Unremarkable. IMPRESSION: Chronic age related changes but no evidence of acute intracranial pathology. Thank you for allowing us to participate in the care of your patient. Dictated and Authenticated by: Trista Hernandez MD 04/03/2020 10:59 AM Central Time ([place] & [place]) CT C Spine wo contrast: PROCEDURE INFORMATION: Exam: CT Cervical Spine Without Contrast Exam date and time: 04/03/2020 10:10 AM Age: 69 years old Clinical indication: Pain and injury or trauma; Fall; Blunt trauma; Neck pain; Additional info: Fall this morning TECHNIQUE: Imaging protocol: Computed tomography images of the cervical spine without contrast. Radiation optimization: All CT scans at this facility use at least one of these dose optimization techniques: automated exposure control; mA and/or kV adjustment per patient size (includes targeted exams where dose is matched to clinical indication); or iterative reconstruction. COMPARISON: CT Cervical Spine wo Cont 07/08/2019 11:44 AM FINDINGS: Bones/joints: Hypertrophic changes are present involving the dens and anterior arch of C1. Discs/Spinal canal/Neural foramina: Moderate to marked left neuroforaminal narrowing C3-C4 and mild left C4-C5, bilateral C5-C6 and C6-C7. Marked disc space narrowing C5-C7 with moderate to large anterior and small posterior osteophytes. Soft tissues: Unremarkable. Lungs: Lung apices are normal. IMPRESSION: No evidence of cervical spine fracture. Remainder of findings as described above. Thank you for allowing us to participate in the care of your patient. Dictated and Authenticated by: Trista Hernandez MD 04/03/2020 11:05 AM Central Time ([place] & [place]) CT Thoracic spine wo contrast: PROCEDURE INFORMATION: Exam: CT Thoracic Spine Without Contrast Exam date and time: 04/03/2020 10:10 AM Age: 69 years old Clinical indication: Injury or trauma; Fall; Blunt trauma (contusions or hematomas); Additional info: Fall this morning TECHNIQUE: Imaging protocol: Computed tomography images of the thoracic spine without contrast. Radiation optimization: All CT scans at this facility use at least one of these dose optimization techniques: automated exposure control; mA and/or kV adjustment per patient size (includes targeted exams where dose is matched to clinical indication); or iterative reconstru ction. COMPARISON: CT Thoracic Spine wo Cont 07/08/2019 11:44 AM FINDINGS: Vertebrae: There is diffuse idiopathic skeletal hyperostosis with chronic disruption of the hyperostosis at T8 and where there is also an unchanged nondisplaced fracture involving the lower anterior T8 vertebral body. Diffuse osteopenia, suspicious for osteoporosis. No new fractures or vertebral body defects. No central canal stenosis or other suspicious stenosis. Discs/Spinal canal/Neural foramina: Incidentally noted severe disc space narrowing at C6/7. Epidural space: Normal. Soft tissues: Unremarkable. Pleural space: Right pleural effusion is increased. Coronary arteries: Diffuse left-sided calcification. Kidneys and ureters: Numerous benign right renal cortical cysts. Other findings: Diffuse aortosclerosis. IMPRESSION: 1. 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 2. Increased nonspecific right pleural effusion. Thank you for allowing us to participate in the care of your patient. Dictated and Authenticated by: Edgar Wong MD 04/03/2020 11:10 AM Central Time ([place] & [place]) See rad report - Re-Assessments/Exams Free Text/Narrative Re-Assessment/Exam: 04/03/20 16:36 Discussed patient case with Dr. Najera who states the patient has a stable fracture of T8. States the patient can follow up with Dr. Willett in the clinic in 2 weeks. He is to wear a back brace until then. We do not carry back braces in ER or PT. We used an abdominal brace. Departure - Departure Time of Disposition: 12:43 Disposition: Home, Self-Care 01 Condition: Fair Clinical Impression: Fracture of T8 vertebra Qualifiers: Encounter type: initial encounter Fracture type: closed Fracture morphology: unspecified fracture morphology Qualified Code(s): S22.069A - Unspecified fracture of T7-T8 vertebra, initial encounter for closed fracture - Discharge Information *PRESCRIPTION DRUG MONITORING PROGRAM REVIEWED*: No *COPY OF PRESCRIPTION DRUG MONITORING REPORT IN PATIENT ZAY: No Instructions: Thoracic Spine Fracture, [id number] Forms: ED Department Discharge Additional Instructions: [facility] will call you to make an appointment in 2 weeks Use your home pain medications as prescribed Wear back brace when up and around, may have it off when you are sitting in the chair, sleeping, showering Sepsis Event Note (ED) - Evaluation Sepsis Screening Result: No Definite Risk - Focused Exam Vital Signs: Vital Signs Temp Pulse Resp BP Pulse Ox 04/03/20 09:18 98 F 70 20 132/59 L 93 L
[2020-04-03] MEDS ORDERED: traMADol 50 MG Tab PO ONE (10:02)
--- NOTE | 2020-04-03 10:59 | CT ---
PROCEDURE INFORMATION: Exam: CT Head Without Contrast Exam date and time: 04/03/2020 10:10 AM Age: 69 years old Clinical indication: Injury or trauma; Fall; Blunt trauma (contusions or hematomas); Consciousness not specified; Additional info: Fall this morning TECHNIQUE: Imaging protocol: Computed tomography of the head without contrast. Radiation optimization: All CT scans at this facility use at least one of these dose optimization techniques: automated exposure control; mA and/or kV adjustment per patient size (includes targeted exams where dose is matched to clinical indication); or iterative reconstruction. COMPARISON: CT Head wo Cont 07/08/2019 11:44 AM FINDINGS: Brain: Prominent sulci. Patchy hypodensity of the cerebral white matter which are nonspecific but likely secondary to microangiopathic changes. Cerebral ventricles: The ventricles are prominent secondary to diffuse volume loss/atrophy. Bones/joints: Unremarkable. No acute fracture. Paranasal sinuses: Visualized sinuses are unremarkable. No fluid levels. Mastoid air cells: Visualized mastoid air cells are well aerated. Soft tissues: Unremarkable. IMPRESSION: Chronic age related changes but no evidence of acute intracranial pathology.
--- NOTE | 2020-04-03 11:06 | CT ---
PROCEDURE INFORMATION: Exam: CT Cervical Spine Without Contrast Exam date and time: 04/03/2020 10:10 AM Age: 69 years old Clinical indication: Pain and injury or trauma; Fall; Blunt trauma; Neck pain; Additional info: Fall this morning TECHNIQUE: Imaging protocol: Computed tomography images of the cervical spine without contrast. Radiation optimization: All CT scans at this facility use at least one of these dose optimization techniques: automated exposure control; mA and/or kV adjustment per patient size (includes targeted exams where dose is matched to clinical indication); or iterative reconstruction. COMPARISON: CT Cervical Spine wo Cont 07/08/2019 11:44 AM FINDINGS: Bones/joints: Hypertrophic changes are present involving the dens and anterior arch of C1. Discs/Spinal canal/Neural foramina: Moderate to marked left neuroforaminal narrowing C3-C4 and mild left C4-C5, bilateral C5-C6 and C6-C7. Marked disc space narrowing C5-C7 with moderate to large anterior and small posterior osteophytes. Soft tissues: Unremarkable. Lungs: Lung apices are normal. IMPRESSION: No evidence of cervical spine fracture. Remainder of findings as described above.
--- NOTE | 2020-04-03 11:10 | CT ---
PROCEDURE INFORMATION: Exam: CT Thoracic Spine Without Contrast Exam date and time: 04/03/2020 10:10 AM Age: 69 years old Clinical indication: Injury or trauma; Fall; Blunt trauma (contusions or hematomas); Additional info: Fall this morning TECHNIQUE: Imaging protocol: Computed tomography images of the thoracic spine without contrast. Radiation optimization: All CT scans at this facility use at least one of these dose optimization techniques: automated exposure control; mA and/or kV adjustment per patient size (includes targeted exams where dose is matched to clinical indication); or iterative reconstruction. COMPARISON: CT Thoracic Spine wo Cont 07/08/2019 11:44 AM FINDINGS: Vertebrae: There is diffuse idiopathic skeletal hyperostosis with chronic disruption of the hyperostosis at T8 and where there is also an unchanged nondisplaced fracture involving the lower anterior T8 vertebral body. Diffuse osteopenia, suspicious for osteoporosis. No new fractures or vertebral body defects. No central canal stenosis or other suspicious stenosis. Discs/Spinal canal/Neural foramina: Incidentally noted severe disc space narrowing at C6/7. Epidural space: Normal. Soft tissues: Unremarkable. Pleural space: Right pleural effusion is increased. Coronary arteries: Diffuse left-sided calcification. Kidneys and ureters: Numerous benign right renal cortical cysts. Other findings: Diffuse aortosclerosis. IMPRESSION: 1. 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 2. Increased nonspecific right pleural effusion.
== END 2020-04-03 12:57 | disposition home or self-care (01) ==
LOC: DL.ED 09:07
DX: S22.061A Stable burst fracture of T7-T8 vertebra, initial encounter for closed fracture (principal); M54.2 Cervicalgia; E11.40 Type 2 diabetes mellitus with diabetic neuropathy, unspecified; E66.9 Obesity, unspecified; I48.91 Unspecified atrial fibrillation; M10.9 Gout, unspecified; K21.9 Gastro-esophageal reflux disease without esophagitis; Z68.32 Body mass index [BMI] 32.0-32.9, adult; Z90.49 Acquired absence of other specified parts of digestive tract; Z79.02 Long term (current) use of antithrombotics/antiplatelets; Z79.4 Long term (current) use of insulin; Z79.899 Other long term (current) drug therapy; W01.10XA Fall on same level from slipping, tripping and stumbling with subsequent striking against unspecified object, initial encounter
CPT/HCPCS: 70450; 72125; 72128; 99283; A9270; 99284

== ENCOUNTER 2020-04-07 00:25 | Emergency (ER) | payer MEDICARE, BC ==
--- NOTE | 2020-04-07 00:29 | EDM.PDOC ---
ED HPI GENERAL MEDICAL PROBLEM - General Chief Complaint: Respiratory Problem Stated Complaint: AMBULANCE Time Seen by Provider: 04/07/20 00:24 Source of Information: Reports: Patient History Limitations: Reports: No Limitations - History of Present Illness INITIAL COMMENTS - FREE TEXT/NARRATIVE: dialysis patient schedule 5am today, positive covid last month 25th, c/o sob this am. low back Pain Score (Numeric/FACES): 5 - Related Data Allergies Allergy/AdvReac Type Severity Reaction Status Date / Time No Known Allergies Allergy Verified 04/07/20 00:37 Home Meds: Home Meds Metoprolol Tartrate 25 mg PO BID 01/21/15 [History] Insulin Glargine,Hum.Rec.Anlog [Basaglar Kwikpen U-100] 34 units SQ BEDTIME 12/15/17 [History] Multivitamin [Multivitamins] 1 tab PO DAILY 12/15/17 [History] Cinacalcet [Sensipar] 30 mg PO .MOTUWETHFR 12/17/17 [History] Clopidogrel [Plavix] 75 mg PO DAILY 12/17/17 [History] Amitriptyline [Elavil] 25 mg PO BEDTIME 07/08/19 [History] Furosemide 80 mg PO .[id number] 07/08/19 [History] Pantoprazole Sodium [Protonix] 20 mg PO DAILY 07/08/19 [History] Sevelamer Carbonate [Renvela] 1,600 mg PO TIDMEALS 07/08/19 [History] Furosemide [Lasix] 80 mg PO .[id number] 04/07/20 [History] Insulin Aspart [NovoLOG] 12 unit SUBCUT .BREAKFASTLUNCH 04/07/20 [History] Insulin Aspart [NovoLOG] 12 unit SUBCUT .SUPPER 04/07/20 [History] oxyCODONE HCl/Acetaminophen [Percocet 5-325 mg Tablet] 1 each PO Q6H PRN 04/07/20 [History] Past Medical History - Past Health History Medical/Surgical History: Denies Medical/Surgical History HEENT History: Reports: Impaired Vision Cardiovascular History: Reports: Afib, Other (See Below) Other Cardiovascular History: myocardial effusions Respiratory History: Reports: Other (See Below) Other Respiratory History: covid and influenza B Gastrointestinal History: Reports: GERD, PUD Genitourinary History: Reports: Dialysis Musculoskeletal History: Reports: Gout, Other (See Below) Other Musculoskeletal History: diabetic neuropathy Neurological History: Reports: Neuropathy, Diabetic Psychiatric History: Reports: None Endocrine/Metabolic History: Reports: Diabetes, Type II, Obesity/BMI 30+ Hematologic History: Reports: None Immunologic History: Reports: None Oncologic (Cancer) History: Reports: None Dermatologic History: Reports: None - Infectious Disease History Infectious Disease History: Reports: Influenza, Novel Coronavirus Other Infectious Disease History: covid - Past Surgical History GI Surgical History: Reports: Cholecystectomy Social & Family History - Family History Family Medical History: Unobtainable - Caffeine Use Caffeine Use: Reports: None - Living Situation & Occupation Living situation: Reports: , with Spouse Occupation: Disabled ED ROS GENERAL - Review of Systems Review Of Systems: Comprehensive ROS is negative, except as noted in HPI. ED EXAM, GENERAL - Physical Exam Exam: See Below Exam Limited By: No Limitations General Appearance: Alert, WD/WN, Mild Distress, Other (discomfort) Ears: Hearing Grossly Normal Throat/Mouth: Normal Voice, No Airway Compromise Head: Atraumatic Neck: Non-Tender, Full Range of Motion Respiratory/Chest: No Accessory Muscle Use, Rhonchi. No: Decreased Breath Sounds Cardiovascular: Regular Rate, Rhythm GI/Abdominal: Soft, Non-Tender (Male) Exam: Deferred Rectal (Males) Exam: Deferred Extremities: Pedal Edema, Other (3+ bilateral) Neurological: Alert, Oriented, Normal Cognition, No Motor/Sensory Deficits Psychiatric: Anxious Skin Exam: Warm, Dry, Normal Color Lymphatic: No Adenopathy Course - Vital Signs Last Recorded V/S: Last Vital Signs Temp 36.3 C 04/07/20 00:30 Pulse 131 H 04/07/20 00:30 Resp 20 04/07/20 00:30 BP 154/77 H 04/07/20 00:30 Pulse Ox 95 04/07/20 00:30 - Orders/Labs/Meds Orders: Active Orders 24 hr Category Date Time Status Chest 1V Frontal [CR] Urgent Exams 04/07/20 00:31 Taken Labs: Laboratory Tests 04/07/20 04/07/20 Range/Units 00:31 00:31 WBC 9.9 (5.0-10.0) 10^3/uL RBC 3.14 L (4.6-6.2) 10^6/uL Hgb 9.7 L D (14.0-18.0) g/dL Hct 29.7 L (40.0-54.0) % MCV 94.6 D (80-100) fL MCH 30.9 (27.0-34.0) pg MCHC 32.7 L (33.0-35.0) g/dL Plt Count 151 (150-450) 10^3/uL Neut % (Auto) 73.9 (42.2-75.2) % Lymph % (Auto) 11.7 L (20.5-50.1) % [place] % (Auto) 9.7 H (2-8) % Eos % (Auto) 4.2 H (1.0-3.0) % Baso % (Auto) 0.5 (0.0-1.0) % Sodium 134 L (136-145) mmol/L Potassium 4.6 (3.5-5.1) mmol/L Chloride 98 (98-107) mmol/L Carbon Dioxide 28 (21-32) mmol/L Anion Gap 12.6 (7-13) mEq/L BUN 25 H (7-18) mg/dL Creatinine 6.35 H* D (0.70-1.30) mg/dL Est Cr Clr Drug Dosing 11.88 mL/min Estimated GFR (MDRD) 9 BUN/Creatinine Ratio 3.9 (No establ ref range) Glucose 99 (74-99) mg/dL Calcium 8.9 (8.5-10.1) mg/dL Total Bilirubin 0.8 (0.2-1.0) mg/dL AST 22 (15-37) U/L ALT 24 (16-63) U/L Alkaline Phosphatase 128 H (46-116) U/L B-Natriuretic Peptide 1080 H (0-100) pg/ml Total Protein 6.6 (6.4-8.2) g/dL Albumin 2.6 L (3.4-5.0) g/dL Globulin 4.0 Albumin/Globulin Ratio 0.65 - Re-Assessments/Exams Free Text/Narrative Re-Assessment/Exam: 04/07/20 01:37 results discussed with pt who is feeling good now states he has home O2 and got panicky this morning. Departure - Departure Time of Disposition: 01:38 Disposition: Home, Self-Care 01 Condition: Good Clinical Impression: Chronic kidney disease on chronic dialysis, Anxiety Congestive heart failure Qualifiers: Heart failure type: systolic Heart failure chronicity: chronic Qualified Code(s): I50.22 - Chronic systolic (congestive) heart failure - Discharge Information Forms: ED Department Discharge Additional Instructions: 1) rest 2) don't sleep flat 3) follow up at clinic 4) continue home meds and O2 Sepsis Event Note (ED) - Focused Exam Vital Signs: Vital Signs Temp Pulse Resp BP Pulse Ox 04/07/20 00:30 36.3 C 131 H 20 154/77 H 95 - My Orders Last 24 Hours: My Active Orders 04/07/20 00:31 Chest 1V Frontal [CR] Urgent - Assessment/Plan Last 24 Hours: My Active Orders 04/07/20 00:31 Chest 1V Frontal [CR] Urgent
[2020-04-07 00:31] VITALS: BP 154/77; PULSE 131
[2020-04-07 00:57] LABS: ANION GAP 12.6 mEq/L (7-13)
--- NOTE | 2020-04-07 01:38 | CR ---
PROCEDURE INFORMATION: Exam: XR Chest, 1 View Exam date and time: 04/07/2020 1:09 AM Age: 69 years old Clinical indication: Shortness of breath; Additional info: SOB TECHNIQUE: Imaging protocol: XR of the chest Views: 1 view. COMPARISON: CR Chest 1V Frontal 03/15/2020 11:16 PM FINDINGS: Lungs: Mild airspace disease in the right lower lobe which suggests atelectasis. No left-sided infiltrates or consolidation. Previous study 03/15/2020 showing bibasilar infiltrative changes which have significantly improved. Pleural space: No pleural effusions. Heart/Mediastinum: Moderate cardiac enlargement. Bones/joints: Unremarkable. IMPRESSION: 1. Right basilar mild atelectatic type changes. 2. Significant improvement in bibasilar infiltrates which were present 03/15/2020. 3. Moderate cardiac enlargement. 4. No pleural effusions.
== END 2020-04-07 01:45 | disposition home or self-care (01) ==
LOC: DL.ED 00:25
DX: I50.22 Chronic systolic (congestive) heart failure (principal); N18.9 Chronic kidney disease, unspecified; I48.91 Unspecified atrial fibrillation; F41.9 Anxiety disorder, unspecified; K21.9 Gastro-esophageal reflux disease without esophagitis; E11.40 Type 2 diabetes mellitus with diabetic neuropathy, unspecified; E11.22 Type 2 diabetes mellitus with diabetic chronic kidney disease; E66.9 Obesity, unspecified; Z68.33 Body mass index [BMI] 33.0-33.9, adult; Z79.4 Long term (current) use of insulin; Z79.02 Long term (current) use of antithrombotics/antiplatelets; Z79.899 Other long term (current) drug therapy; Z99.2 Dependence on renal dialysis
CPT/HCPCS: 36415; 71045; 80053; 83880; 85025; 99283; 99285-25

== ENCOUNTER 2020-04-27 16:59 | Emergency (ER) | payer MEDICARE, BC ==
[2020-04-27 17:16] VITALS: BP 147/76; PULSE 78
--- NOTE | 2020-04-27 17:27 | EDM.PDOC ---
ED HPI GENERAL MEDICAL PROBLEM - General Chief Complaint: Skin Complaint Stated Complaint: RED RIGHT FOOT SENT BY DR. SAHA Time Seen by Provider: 04/27/20 17:15 Source of Information: Reports: Patient, RN, RN Notes Reviewed History Limitations: Reports: No Limitations - History of Present Illness INITIAL COMMENTS - FREE TEXT/NARRATIVE: Patient presents to the ED via personal vehicle at the request of his home health nurse for evaluation of wound to right great toe. The patient reports a history of DM II and CKD for which he receives hemodialysis. He is unsure when the wound occurred but notes he has been receiving home health dressing changes "...for some time." The denies pain to the area foot/wound as he reports neuropathy. He does not know when the swelling or redness worsened but states he receives dressing changes to his right great toe every other day. He denies fever, shaking chills, or loss of motor function to the extremity. He denies tobacco, alcohol, and recreational drug use. - Related Data Allergies Allergy/AdvReac Type Severity Reaction Status Date / Time No Known Allergies Allergy Verified 04/07/20 00:37 Home Meds: Home Meds Metoprolol Tartrate 25 mg PO BID 01/21/15 [History] Insulin Glargine,Hum.Rec.Anlog [Basaglar Kwikpen U-100] 34 units SQ BEDTIME 12/15/17 [History] Multivitamin [Multivitamins] 1 tab PO DAILY 12/15/17 [History] Cinacalcet [Sensipar] 30 mg PO .MOTUWETHFR 12/17/17 [History] Clopidogrel [Plavix] 75 mg PO DAILY 12/17/17 [History] Amitriptyline [Elavil] 25 mg PO BEDTIME 07/08/19 [History] Furosemide 80 mg PO .BIDTUTHSASU 07/08/19 [History] Pantoprazole Sodium [Protonix] 20 mg PO DAILY 07/08/19 [History] Sevelamer Carbonate [Renvela] 1,600 mg PO TIDMEALS 07/08/19 [History] Furosemide [Lasix] 80 mg PO .BIDMOWEFR 04/07/20 [History] Insulin Aspart [NovoLOG] 12 unit SUBCUT .BREAKFASTLUNCH 04/07/20 [History] Insulin Aspart [NovoLOG] 12 unit SUBCUT .SUPPER 04/07/20 [History] oxyCODONE HCl/Acetaminophen [Percocet 5-325 mg Tablet] 1 each PO Q6H PRN 04/07/20 [History] Past Medical History - Past Health History Medical/Surgical History: Denies Medical/Surgical History HEENT History: Reports: Impaired Vision Cardiovascular History: Reports: Afib, Other (See Below) Other Cardiovascular History: myocardial effusions Respiratory History: Reports: Other (See Below) Other Respiratory History: covid and influenza B Gastrointestinal History: Reports: GERD, PUD Genitourinary History: Reports: Dialysis Musculoskeletal History: Reports: Gout, Other (See Below) Other Musculoskeletal History: diabetic neuropathy Neurological History: Reports: Neuropathy, Diabetic Psychiatric History: Reports: None Endocrine/Metabolic History: Reports: Diabetes, Type II, Obesity/BMI 30+ Hematologic History: Reports: None Immunologic History: Reports: None Oncologic (Cancer) History: Reports: None Dermatologic History: Reports: None - Infectious Disease History Infectious Disease History: Reports: Influenza, Novel Coronavirus Other Infectious Disease History: covid - Past Surgical History GI Surgical History: Reports: Cholecystectomy Social & Family History - Family History Family Medical History: No Pertinent Family History - Tobacco Use Tobacco Use Status *Q: Never Tobacco User - Caffeine Use Caffeine Use: Reports: None - Recreational Drug Use Recreational Drug Use: No - Living Situation & Occupation Living situation: Reports: , with Spouse Occupation: Disabled ED ROS GENERAL - Review of Systems Review Of Systems: Comprehensive ROS is negative, except as noted in HPI. ED EXAM, SKIN/RASH Exam: See Below Exam Limited By: No Limitations General Appearance: Alert, WD/WN, No Apparent Distress Extremities: Non-Tender, Normal Capillary Refill, Pedal Edema (+2 pitting to RLE; +1 pitting to LLE), Limited Range of Motion, Increased Warmth (To dorsal aspect of right foot, diffuse from ankle to toes), Redness (To dorsal aspect of right foot, diffuse from ankle to toes) Neurological: Alert, Oriented, CN II-XII Intact, Normal Cognition, Normal Gait, No Motor/Sensory Deficits Psychiatric: Normal Affect, Normal Mood Skin: Erythema (To dorsal aspect of right foot, diffuse from ankle to toes), Increased Warmth (To dorsal aspect of right foot, diffuse from ankle to toes), Wound/Incision (2x3cm dried eschar to distal aspect of right great toe). No: Ecchymosis, Excoriations, Jaundice, Mottled, Petechiae Location, Skin: Lower Extremity, Right Characteristics: Erythematous Associated features: Warmth, Inflammation. No: Induration, Weeping Course - Vital Signs Last Recorded V/S: Last Vital Signs Temp 98.0 F 04/27/20 17:11 Pulse 78 04/27/20 17:11 Resp 18 04/27/20 17:11 BP 147/76 H 04/27/20 17:11 Pulse Ox 99 04/27/20 17:11 - Radiology Interpretation Free Text/Narrative:: [facility] Final Radiology Report with Addendum Call: [phone] assistance Online chat: [email or web address] Name: CALI SWEENEY Age: 69Years M Date: 04/27/2020 SSN: -- : 1950 Study: CR FOOT COMP MIN 3V RT Requesting Physician: Nancy Madrigal Images: 3 Addl Studies: Provided Clinical History: Sore to great toe; Erythema; Osteomylitis? Contrast: Contrast Medium: Contrast Amount: Contrast Method: Page 1 of 2 Addendum created by Saurav Sweeney DO on 04/27/2020 5:58 PM Central Time ([place] & [place]): THIS REPORT CONTAINS FINDINGS THAT MAY BE CRITICAL TO PATIENT CARE. The findings were verbally communicated via telephone conference at 5:58 PM EPIT[employer]IAL REACTOR OPERATOR on 04/27/2020 with Nancy Madrigal. The findings were acknowledged and understood. Initial Report created on 04/27/2020 5:54 PM Central Time ([place] & [place]): PROCEDURE INFORMATION: Exam: XR Right Foot Complete Exam date and time: 04/27/2020 5:39 PM Age: 69 years old Clinical indication: Edema and swelling, leg or foot and other: Great toe; Location not specified; Additional info: Sore to great toe; Erythema; Osteomylitis? TECHNIQUE: Imaging protocol: XR Right foot. Views: 3 or more views. COMPARISON: No relevant prior studies available. FINDINGS: Bones/joints: There is irregularity along the tuft of the distal phalanx of the great toe present. There is no evidence of acute fracture. There is no evidence of joint malalignment or dislocation. Soft tissues: Overlying soft tissue swelling is present. Diffuse soft tissue edematous changes are present. Vasculature: The vasculature demonstrates diffuse mild atherosclerotic calcification. IMPRESSION: CALI SWEENEY | Final Radiology Report CONFIDENTIALITY STATEMENT This report is intended only for use by the referring physician, and only in ac cordance with law. If you received this in error, call [phone]. Page 2 of 2 1. There is irregularity along the tuft of the distal phalanx of the great toe present. Overlying soft tissue swelling is present. Findings may be consistent with early osteomyelitis. Further evaluation is recommended. 2. Diffuse soft tissue edematous changes are present. 3. No evidence of acute fracture. 4. No evidence of acute dislocation. Thank you for allowing us to participate in the care of your patient. Dictated and Authenticated by: Saurav Sweeney DO 04/27/2020 5:54 PM Central Time ([place] & [place]) - Re-Assessments/Exams Free Text/Narrative Re-Assessment/Exam: 04/27/20 Xray revealed possible early signs of osteo in the right great toe. Case discussed with Dr. Pieter Soliz in podiatry who agreed to see Mr. Sweeney in clinic tomorrow in [place] for ongoing management. Will treat cellulitis to foot with Doxycycline and Clindamycin. Plan of care discussed with patient who verbalized understanding and agreement with this plan. Departure - Departure Time of Disposition: 18:16 Disposition: Home, Self-Care 01 Condition: Good Clinical Impression: Cellulitis of foot associated with diabetes mellitus Open wound of right great toe Qualifiers: Encounter type: sequela Qualified Code(s): S91.101S - Unspecified open wound of right great toe without damage to nail, sequela - Discharge Information *PRESCRIPTION DRUG MONITORING PROGRAM REVIEWED*: Not Applicable *COPY OF PRESCRIPTION DRUG MONITORING REPORT IN PATIENT ZAY: Not Applicable Referrals: Mary Kay Clifford NP [Primary Care Provider] - Forms: ED Department Discharge Additional Instructions: Rx: Clindamycin Rx: Doxycycline 1.) Follow up with Dr. Pieter Soliz in Podiatry for an appointment tomorrow in [place]. His number is [phone] Address is [address] 2.) Keep dressing in place to toe until Dr. Soliz evaluates your foot. Sepsis Event Note (ED) - Evaluation Sepsis Screening Result: No Definite Risk
--- NOTE | 2020-04-27 17:55 | CR ---
PROCEDURE INFORMATION: Exam: XR Right Foot Complete Exam date and time: 04/27/2020 5:39 PM Age: 69 years old Clinical indication: Edema and swelling, leg or foot and other: Great toe; Location not specified; Additional info: Sore to great toe; Erythema; Osteomylitis? TECHNIQUE: Imaging protocol: XR Right foot. Views: 3 or more views. COMPARISON: No relevant prior studies available. FINDINGS: Bones/joints: There is irregularity along the tuft of the distal phalanx of the great toe present. There is no evidence of acute fracture. There is no evidence of joint malalignment or dislocation. Soft tissues: Overlying soft tissue swelling is present. Diffuse soft tissue edematous changes are present. Vasculature: The vasculature demonstrates diffuse mild atherosclerotic calcification. IMPRESSION: 1. There is irregularity along the tuft of the distal phalanx of the great toe present. Overlying soft tissue swelling is present. Findings may be consistent with early osteomyelitis. Further evaluation is recommended. 2. Diffuse soft tissue edematous changes are present. 3. No evidence of acute fracture. 4. No evidence of acute dislocation.
== END 2020-04-27 18:36 | disposition home or self-care (01) ==
LOC: DL.ED 16:59
DX: S91.101S Unspecified open wound of right great toe without damage to nail, sequela (principal); E11.628 Type 2 diabetes mellitus with other skin complications; L03.115 Cellulitis of right lower limb; E11.22 Type 2 diabetes mellitus with diabetic chronic kidney disease; I48.91 Unspecified atrial fibrillation; N18.9 Chronic kidney disease, unspecified; K21.9 Gastro-esophageal reflux disease without esophagitis; E11.40 Type 2 diabetes mellitus with diabetic neuropathy, unspecified; E66.9 Obesity, unspecified; Z68.29 Body mass index [BMI] 29.0-29.9, adult; Z79.02 Long term (current) use of antithrombotics/antiplatelets; Z79.4 Long term (current) use of insulin; Z79.899 Other long term (current) drug therapy; Z99.2 Dependence on renal dialysis; X58.XXXS Exposure to other specified factors, sequela
CPT/HCPCS: 73630-RT; 99283; 99285

== ENCOUNTER 2020-05-01 05:13 | Emergency (ER) | payer MEDICARE, BC ==
--- NOTE | 2020-05-01 05:28 | CT ---
PROCEDURE INFORMATION: Exam: CT Head Without Contrast Exam date and time: 05/01/2020 5:20 AM Age: 69 years old Clinical indication: Other: Right sided facial droop; Additional info: Left sided weakness TECHNIQUE: Imaging protocol: Computed tomography of the head without contrast. Radiation optimization: All CT scans at this facility use at least one of these dose optimization techniques: automated exposure control; mA and/or kV adjustment per patient size (includes targeted exams where dose is matched to clinical indication); or iterative reconstruction. Other technique: STROKE PROTOCOL was implemented. COMPARISON: CT Head wo Cont 04/03/2020 10:10 AM FINDINGS: Brain: There is moderate diffuse heterogeneity of the white matter attenuation, consistent with chronic white matter ischemic changes. There is moderate diffuse cerebral atrophy present, consistent with this patient's age. Cerebral ventricles: No ventriculomegaly. Bones/joints: Unremarkable. No acute fracture. Paranasal sinuses: Visualized sinuses are unremarkable. No fluid levels. Mastoid air cells: Visualized mastoid air cells are well aerated. Soft tissues: Unremarkable. IMPRESSION: No acute intracranial abnormality. ASSESSMENT: ASPECTS ([place] Stroke Program Early CT Score) is 10.
--- NOTE | 2020-05-01 05:38 | EDM.PDOC ---
ED HPI GENERAL MEDICAL PROBLEM - General Stated Complaint: AMBULANCE Time Seen by Provider: 05/01/20 05:20 Source of Information: Reports: EMS History Limitations: Reports: Other (generalized confusion) - History of Present Illness INITIAL COMMENTS - FREE TEXT/NARRATIVE: This 69 yo male patient was brought to the ED due to generalized weakness. EMS reports the patient's called due to the patient being too weak to stand up. EMS reports that they noticed some involuntary movements of the patient's left arm, profound weakness to the patient's left side and right sided facial droop when they assessed the patient in his home. EMS reports the facial droop went away as they got the patient into the ambulance. Upon arrival in the ED, the patient was sent directly to CT. When he returned to the ED, the patient reports he is here for back pain and right leg pain. The patient has a history of chronic back pain and has an infection in his right great toe for which he is on antibiotics. The patient is a dialysis patient and is due to have dialysis today. The patient's reports the patient is normally able to walk without difficulties. The patient's reported that the patient had a low blood sugar yesterday (41 on home testing). The patient was given sugar tabs that brought his blood sugar level up. EMS reports a blood sugar level of 122. Onset: Today Duration: Constant Location: Reports: Generalized Quality: Reports: Other Severity: Moderate Improves with: Reports: None Worsens with: Reports: None Context: Reports: Other Associated Symptoms: Reports: No Other Symptoms - Related Data Allergies Allergy/AdvReac Type Severity Reaction Status Date / Time No Known Allergies Allergy Verified 05/01/20 05:21 Home Meds: Home Meds Metoprolol Tartrate 25 mg PO BID 01/21/15 [History] Insulin Glargine,Hum.Rec.Anlog [Basaglar Kwikpen U-100] 30 units SQ BEDTIME 12/15/17 [History] Multivitamin [Multivitamins] 1 tab PO DAILY 12/15/17 [History] Cinacalcet [Sensipar] 30 mg PO .MOTUWETHFR 12/17/17 [History] Clopidogrel [Plavix] 75 mg PO DAILY 12/17/17 [History] Amitriptyline [Elavil] 25 mg PO BEDTIME 07/08/19 [History] Furosemide 80 mg PO .DAILYTUTHSASU 07/08/19 [History] Pantoprazole Sodium [Protonix] 20 mg PO DAILY 07/08/19 [History] Sevelamer Carbonate [Renvela] 1,600 mg PO TIDMEALS 07/08/19 [History] Furosemide [Lasix] 80 mg PO .BIDMOWEFR 04/07/20 [History] Insulin Aspart [NovoLOG] 12 unit SUBCUT .SUPPER 04/07/20 [History] Insulin Aspart [NovoLOG] 15 unit SUBCUT .BREAKFASTLUNCH 04/07/20 [History] oxyCODONE HCl/Acetaminophen [Percocet 5-325 mg Tablet] 1 each PO Q6H PRN 04/07/20 [History] Calcium Acetate [PhosLo] 667 mg PO TIDMEALS 05/01/20 [History] Clindamycin HCl 300 mg PO QID 05/01/20 [History] Docusate Sodium [Colace] 100 mg PO BID PRN 05/01/20 [History] Doxycycline [Doxycycline Monohydrate] 100 mg PO BID 05/01/20 [History] Gabapentin [Neurontin] 100 mg PO TID 05/01/20 [History] oxyCODONE HCl [Oxycodone HCL] 10 mg PO BID PRN 05/01/20 [History] Past Medical History - Past Health History Medical/Surgical History: Denies Medical/Surgical History HEENT History: Reports: Impaired Vision Cardiovascular History: Reports: Afib, Other (See Below) Other Cardiovascular History: myocardial effusions Respiratory History: Reports: Other (See Below) Other Respiratory History: covid and influenza B Gastrointestinal History: Reports: GERD, PUD Genitourinary History: Reports: Dialysis Musculoskeletal History: Reports: Gout, Other (See Below) Other Musculoskeletal History: diabetic neuropathy Neurological History: Reports: Neuropathy, Diabetic Psychiatric History: Reports: None Endocrine/Metabolic History: Reports: Diabetes, Type II, Obesity/BMI 30+ Hematologic History: Reports: None Immunologic History: Reports: None Oncologic (Cancer) History: Reports: None Dermatologic History: Reports: None - Infectious Disease History Infectious Disease History: Reports: Influenza, Novel Coronavirus Other Infectious Disease History: covid - Past Surgical History GI Surgical History: Reports: Cholecystectomy Social & Family History - Family History Family Medical History: No Pertinent Family History - Caffeine Use Caffeine Use: Reports: None - Living Situation & Occupation Living situation: Reports: , with Spouse Occupation: Disabled ED ROS GENERAL - Review of Systems Review Of Systems: Comprehensive ROS is negative, except as noted in HPI. ED EXAM, NEURO - Physical Exam Exam: See Below Exam Limited By: No Limitations General Appearance: Alert, WD/WN, Moderate Distress, Obese Eye Exam: Bilateral Eye: EOMI, Normal Inspection, PERRL Ears: Normal External Exam, Normal Canal, Hearing Grossly Normal, Normal TMs Nose: Normal Inspection, Normal Mucosa, No Blood Throat/Mouth: Normal Inspection, Normal Lips, Normal Teeth, Normal Gums, Normal Oropharynx, Normal Voice, No Airway Compromise Head Exam: Atraumatic, Normocephalic Neck: Normal Inspection, Supple, Non-Tender, Full Range of Motion Respiratory/Chest: No Respiratory Distress, Lungs Clear, Normal Breath Sounds, No Accessory Muscle Use, Chest Non-Tender Cardiovascular: Normal Peripheral Pulses, No Gallop, No JVD, No Murmur, No Rub, Irregularly Irregular GI/Abdominal: Normal Bowel Sounds, Soft, Non-Tender, No Organomegaly, No Distention, No Abnormal Bruit, No Mass, Other (obese) (Male) Exam: Deferred Rectal (Males) Exam: Deferred Neurological: Alert, Other (The patient had difficulties answering questions, but would answer appropriately when asked questions several times. ) Back Exam: Normal Inspection, Full Range of Motion, NT Extremities: Leg Pain (right foot pain with erythema) Psychiatric: Normal Affect, Normal Mood Course - Vital Signs Last Recorded V/S: Last Vital Signs Temp 39.2 C H 05/01/20 06:23 Pulse 119 H 05/01/20 06:23 Resp 12 05/01/20 06:23 BP 120/63 05/01/20 06:23 Pulse Ox 97 05/01/20 06:23 - Orders/Labs/Meds Orders: Active Orders 24 hr Category Date Time Status EKG Documentation Completion [RC] STAT Care 05/01/20 05:09 Active Glucose [Blood Glucose Check, Bedside] [RC] ONETIME Care 05/01/20 05:10 Active B-TYPE NATRIURETIC PEPTIDE,BNP [CHEM] Stat Lab 05/01/20 06:09 Ordered CBC WITH AUTO DIFF [HEME] Stat Lab 05/01/20 05:41 Results CORONAVIRUS COVID-19 LINNETTE [MOLEC] Stat Lab 05/01/20 06:20 Ordered CULTURE BLOOD [BC] Stat Lab 05/01/20 05:41 Results CULTURE BLOOD [BC] Stat Lab 05/01/20 06:11 Ordered MANUAL DIFFERENTIAL QA/NC [HEME] Stat Lab 05/01/20 05:41 Results REFLEX LACTIC ACID YES OR NO [CHEM] Routine Lab 05/01/20 06:14 Received Piperacillin/Tazobactam [Zosyn] 3.375 gm Med 05/01/20 06:23 Ordered Sodium Chloride 0.9% [Normal Saline] 100 ml IV ONETIME Medication Orders Piperacillin Sod/Tazobactam (Sod 3.375 gm/ Sodium Chloride) 100 mls @ 200 mls/hr IV ONETIME ONE Stop: 05/01/20 06:52 Last Admin: 05/01/20 06:29 Dose: 200 mls/hr Documented by: DELIA Labs: Laboratory Tests 05/01/20 05/01/20 05/01/20 Range/Units 05:13 05:41 05:41 WBC 38.1 H* (5.0-10.0) 10^3/uL RBC 3.19 L (4.6-6.2) 10^6/uL Hgb 10.0 L (14.0-18.0) g/dL Hct 30.5 L (40.0-54.0) % MCV 95.6 (80-100) fL MCH 31.3 (27.0-34.0) pg MCHC 32.8 L (33.0-35.0) g/dL Plt Count 329 D (150-450) 10^3/uL Neut % (Auto) 91.0 H (42.2-75.2) % Lymph % (Auto) 2.1 L (20.5-50.1) % [place] % (Auto) 6.8 (2-8) % Eos % (Auto) 0.0 L (1.0-3.0) % Baso % (Auto) 0.1 (0.0-1.0) % Add Manual Diff Yes Sodium 134 L (136-145) mmol/L Potassium 6.9 H* D (3.5-5.1) mmol/L Chloride 95 L (98-107) mmol/L Carbon Dioxide 28 (21-32) mmol/L Anion Gap 17.9 H (7-13) mEq/L BUN 44 H (7-18) mg/dL Creatinine 7.54 H* (0.70-1.30) mg/dL Est Cr Clr Drug Dosing TNP Estimated GFR (MDRD) 7 BUN/Creatinine Ratio 5.8 (No establ ref range) Glucose 126 H (74-99) mg/dL POC Glucose 122 H (83-110) mg/dl Lactic Acid (0.4-2.0) mmol/L Calcium 9.3 (8.5-10.1) mg/dL Total Bilirubin 0.7 (0.2-1.0) mg/dL AST 34 (15-37) U/L ALT 18 (16-63) U/L Alkaline Phosphatase 131 H (46-116) U/L Troponin I 0.029 (0.000-0.056) ng/mL Total Protein 6.7 (6.4-8.2) g/dL Albumin 2.4 L (3.4-5.0) g/dL Globulin 4.3 Albumin/Globulin Ratio 0.56 05/01/20 Range/Units 05:41 WBC (5.0-10.0) 10^3/uL RBC (4.6-6.2) 10^6/uL Hgb (14.0-18.0) g/dL Hct (40.0-54.0) % MCV (80-100) fL MCH (27.0-34.0) pg MCHC (33.0-35.0) g/dL Plt Count (150-450) 10^3/uL Neut % (Auto) (42.2-75.2) % Lymph % (Auto) (20.5-50.1) % [place] % (Auto) (2-8) % Eos % (Auto) (1.0-3.0) % Baso % (Auto) (0.0-1.0) % Add Manual Diff Sodium (136-145) mmol/L Potassium (3.5-5.1) mmol/L Chloride (98-107) mmol/L Carbon Dioxide (21-32) mmol/L Anion Gap (7-13) mEq/L BUN (7-18) mg/dL Creatinine (0.70-1.30) mg/dL Est Cr Clr Drug Dosing Estimated GFR (MDRD) BUN/Creatinine Ratio (No establ ref range) Glucose (74-99) mg/dL POC Glucose (83-110) mg/dl Lactic Acid 2.1 H* (0.4-2.0) mmol/L Calcium (8.5-10.1) mg/dL Total Bilirubin (0.2-1.0) mg/dL AST (15-37) U/L ALT (16-63) U/L Alkaline Phosphatase (46-116) U/L Troponin I (0.000-0.056) ng/mL Total Protein (6.4-8.2) g/dL Albumin (3.4-5.0) g/dL Globulin Albumin/Globulin Ratio Meds: Medications Generic Name Dose Route Start Last Admin Trade Name Freq PRN Reason Stop Dose Admin Piperacillin Sod/Tazobactam 100 mls @ 200 mls/hr 05/01/20 06:23 05/01/20 06 :29 Sod 3.375 gm/ Sodium Chloride IV 05/01/20 06:52 200 mls/hr ONETIME ONE Administration Departure - Departure Time of Disposition: 06:29 Disposition: DC/Tfer to Acute Hospital 02 Condition: Serious Clinical Impression: Hyperkalemia, Chronic kidney disease on chronic dialysis Sepsis Qualifiers: Sepsis type: sepsis due to unspecified organism Sepsis acute organ dysfunction status: unspecified Qualified Code(s): A41.9 - Sepsis, unspecified organism - Discharge Information *PRESCRIPTION DRUG MONITORING PROGRAM REVIEWED*: Not Applicable *COPY OF PRESCRIPTION DRUG MONITORING REPORT IN PATIENT ZAY: Not Applicable Forms: Interfacility Transfer [facility] Care Plan Goals: Discussed the patient's history, examination, lab, EKG and CT results with Dr. Tiwari. Dr. Tiwari accepted the patient for continued evaluation and management as an inpatient at [facility] in [place]. The patient was given an IV dose of Zosyn prior to transport. The patient will be transported by [facility]. Sepsis Event Note (ED) - Focused Exam Vital Signs: Vital Signs Temp Pulse Resp BP Pulse Ox 05/01/20 06:23 39.2 C H 119 H 12 120/63 97 05/01/20 05:15 38.7 C H 96 16 139/85 100 - My Orders Last 24 Hours: My Active Orders 05/01/20 05:09 EKG Documentation Completion [RC] STAT 05/01/20 05:10 Glucose [Blood Glucose Check, Bedside] [RC] ONETIME 05/01/20 05:41 CBC WITH AUTO DIFF [HEME] Stat CULTURE BLOOD [BC] Stat MANUAL DIFFERENTIAL QA/NC [HEME] Stat 05/01/20 06:09 B-TYPE NATRIURETIC PEPTIDE,BNP [CHEM] Stat 05/01/20 06:11 CULTURE BLOOD [BC] Stat 05/01/20 06:14 REFLEX LACTIC ACID YES OR NO [CHEM] Routine 05/01/20 06:20 CORONAVIRUS COVID-19 LINNETTE [MOLEC] Stat 05/01/20 06:23 Piperacillin/Tazobactam [Zosyn] 3.375 gm Sodium Chloride 0.9% [Normal Saline] 100 ml IV ONETIME - Assessment/Plan Last 24 Hours: My Active Orders 05/01/20 05:09 EKG Documentation Completion [RC] STAT 05/01/20 05:10 Glucose [Blood Glucose Check, Bedside] [RC] ONETIME 05/01/20 05:41 CBC WITH AUTO DIFF [HEME] Stat CULTURE BLOOD [BC] Stat MANUAL DIFFERENTIAL QA/NC [HEME] Stat 05/01/20 06:09 B-TYPE NATRIURETIC PEPTIDE,BNP [CHEM] Stat 05/01/20 06:11 CULTURE BLOOD [BC] Stat 05/01/20 06:14 REFLEX LACTIC ACID YES OR NO [CHEM] Routine 05/01/20 06:20 CORONAVIRUS COVID-19 LINNETTE [MOLEC] Stat 05/01/20 06:23 Piperacillin/Tazobactam [Zosyn] 3.375 gm Sodium Chloride 0.9% [Normal Saline] 100 ml IV ONETIME
[2020-05-01 06:09] LABS: ANION GAP 17.9 mEq/L (7-13); CHLORIDE,CL 95 mmol/L (98-107); SODIUM,NA 134 mmol/L (136-145)
[2020-05-01] MEDS ORDERED: Piperacillin/Tazobactam 3.375 GM in Sodium Chloride 0.9% 100 ML IV ONE (06:23)
[2020-05-01 06:24] VITALS: BP 120/63; PULSE 119
== END 2020-05-01 07:13 ==
LOC: DL.ED 05:13
DX: A41.9 Sepsis, unspecified organism (principal); R65.20 Severe sepsis without septic shock; E11.22 Type 2 diabetes mellitus with diabetic chronic kidney disease; N18.9 Chronic kidney disease, unspecified; Z99.2 Dependence on renal dialysis; E66.9 Obesity, unspecified; E11.40 Type 2 diabetes mellitus with diabetic neuropathy, unspecified; I48.91 Unspecified atrial fibrillation; K21.9 Gastro-esophageal reflux disease without esophagitis; Z79.4 Long term (current) use of insulin; Z79.02 Long term (current) use of antithrombotics/antiplatelets; Z79.899 Other long term (current) drug therapy
CPT/HCPCS: 36415; 70450; 80053; 82962; 83605; 83880; 84484; 85025; 87040; 93005; 93010; 96365; 99285; 99285-25; J2543; J7050; U0002

== ENCOUNTER 2020-05-17 15:12 | Observation (INO) | payer MEDICARE, BC ==
--- NOTE | 2020-05-17 15:41 | EDM.PDOC ---
ED HPI GENERAL MEDICAL PROBLEM - General Stated Complaint: [facility] Time Seen by Provider: 05/17/20 15:25 Source of Information: Reports: Patient, EMS History Limitations: Reports: No Limitations - History of Present Illness INITIAL COMMENTS - FREE TEXT/NARRATIVE: This 69 yo male patient was brought to the ED by [facility] due to left lower leg pain. The patient reports he fell this morning while at home, was assisted to his chair by PD and has been in his chair since. The patient is a dialysis patient (normally goes friday, friday and friday). The patient did not go to dialysis today due to the fall. The patient reports he did have dialysis on Friday while he with in [facility]. The patient reports he was given a dose of pain medications while he was at home (Oxycodone was on his medication list). Onset: Today Onset Date: 05/17/20 Duration: Constant Location: Reports: Lower Extremity, Left Quality: Reports: Ache, Dull Severity: Moderate Improves with: Reports: Rest Worsens with: Reports: Movement Context: Reports: Other (Ground level fall) Associated Symptoms: Reports: No Other Symptoms - Related Data Allergies Allergy/AdvReac Type Severity Reaction Status Date / Time No Known Allergies Allergy Verified 05/01/20 05:21 Home Meds: Home Meds Metoprolol Tartrate 25 mg PO BID 01/21/15 [History] Insulin Glargine,Hum.Rec.Anlog [Basaglar Kwikpen U-100] 30 units SQ BEDTIME 12/15/17 [History] Multivitamin [Multivitamins] 1 tab PO DAILY 12/15/17 [History] Cinacalcet [Sensipar] 30 mg PO .MOTUWETHFR 12/17/17 [History] Clopidogrel [Plavix] 75 mg PO DAILY 12/17/17 [History] Amitriptyline [Elavil] 25 mg PO BEDTIME 07/08/19 [History] Furosemide 80 mg PO .DAILYTUTHSASU 07/08/19 [History] Pantoprazole Sodium [Protonix] 20 mg PO DAILY 07/08/19 [History] Sevelamer Carbonate [Renvela] 1,600 mg PO TIDMEALS 07/08/19 [History] Furosemide [Lasix] 80 mg PO .BIDMOWEFR 04/07/20 [History] Insulin Aspart [NovoLOG] 12 unit SUBCUT .SUPPER 04/07/20 [History] Insulin Aspart [NovoLOG] 15 unit SUBCUT .BREAKFASTLUNCH 04/07/20 [History] oxyCODONE HCl/Acetaminophen [Percocet 5-325 mg Tablet] 1 each PO Q6H PRN 04/07/20 [History] Calcium Acetate [PhosLo] 667 mg PO TIDMEALS 05/01/20 [History] Clindamycin HCl 300 mg PO QID 05/01/20 [History] Docusate Sodium [Colace] 100 mg PO BID PRN 05/01/20 [History] Doxycycline [Doxycycline Monohydrate] 100 mg PO BID 05/01/20 [History] Gabapentin [Neurontin] 100 mg PO TID 05/01/20 [History] oxyCODONE HCl [Oxycodone HCL] 10 mg PO BID PRN 05/01/20 [History] Past Medical History - Past Health History Medical/Surgical History: Denies Medical/Surgical History HEENT History: Reports: Impaired Vision Cardiovascular History: Reports: Afib, Other (See Below) Other Cardiovascular History: myocardial effusions Respiratory History: Reports: Other (See Below) Other Respiratory History: covid and influenza B Gastrointestinal History: Reports: GERD, PUD Genitourinary History: Reports: Dialysis Musculoskeletal History: Reports: Gout, Other (See Below) Other Musculoskeletal History: diabetic neuropathy Neurological History: Reports: Neuropathy, Diabetic Psychiatric History: Reports: None Endocrine/Metabolic History: Reports: Diabetes, Type II, Obesity/BMI 30+ Hematologic History: Reports: None Immunologic History: Reports: None Oncologic (Cancer) History: Reports: None Dermatologic History: Reports: None - Infectious Disease History Infectious Disease History: Reports: Influenza, Novel Coronavirus Other Infectious Disease History: covid - Past Surgical History GI Surgical History: Reports: Cholecystectomy Social & Family History - Family History Family Medical History: No Pertinent Family History - Caffeine Use Caffeine Use: Reports: Coffee - Living Situation & Occupation Living situation: Reports: , with Spouse Occupation: Disabled Review of Systems - Review of Systems Review Of Systems: Comprehensive ROS is negative, except as noted in HPI. ED EXAM, GENERAL - Physical Exam Exam: See Below Exam Limited By: No Limitations General Appearance: Alert, WD/WN, Moderate Distress Eye Exam: Bilateral Eye: EOMI, Normal Inspection, PERRL Ears: Normal External Exam, Normal Canal, Hearing Grossly Normal, Normal TMs Nose: Normal Inspection, Normal Mucosa, No Blood Throat/Mouth: Normal Inspection, Normal Lips, Normal Teeth, Normal Gums, Normal Oropharynx, Normal Voice, No Airway Compromise Head: Atraumatic, Normocephalic Neck: Normal Inspection, Supple, Non-Tender, Full Range of Motion Respiratory/Chest: No Respiratory Distress, Lungs Clear, Normal Breath Sounds, No Accessory Muscle Use, Chest Non-Tender Cardiovascular: Normal Peripheral Pulses, Regular Rate, Rhythm, No Edema, No Gallop, No JVD, No Murmur, No Rub GI/Abdominal: Normal Bowel Sounds, Soft, Non-Tender, No Organomegaly, No Distention, No Abnormal Bruit, No Mass (Male) Exam: Deferred Rectal (Males) Exam: Deferred Back Exam: Paraspinal Tenderness Extremities: Leg Pain (left lower extremity) Neurological: Alert, Oriented, CN II-XII Intact, Normal Cognition, Normal Gait, Normal Reflexes, No Motor/Sensory Deficits Psychiatric: Normal Affect, Normal Mood Skin Exam: Warm, Dry, Intact, Normal Color, No Rash Lymphatic: No Adenopathy Course - Vital Signs Last Recorded V/S: Last Vital Signs Temp 36.4 C 05/17/20 15:33 Pulse 90 05/17/20 15:33 Resp 20 05/17/20 15:33 BP 130/62 05/17/20 15:33 Pulse Ox 93 L 05/17/20 15:33 - Orders/Labs/Meds Orders: Active Orders 24 hr Category Date Time Status DME for Discharge [COMM] Urgent Oth 05/17/20 17:02 Ordered Departure - Departure Time of Disposition: 17:03 Disposition: Home, Self-Care 01 Condition: Fair Clinical Impression: Closed left fibular fracture Qualifiers: Encounter type: initial encounter Fibula location: proximal Fracture morphology: unspecified fracture morphology Qualified Code(s): S82.832A - Other fracture of upper and lower end of left fibula, initial encounter for closed fracture - Discharge Information *PRESCRIPTION DRUG MONITORING PROGRAM REVIEWED*: Not Applicable *COPY OF PRESCRIPTION DRUG MONITORING REPORT IN PATIENT ZAY: Not Applicable Instructions: How to Use a Knee Immobilizer, [id number] Forms: ED Department Discharge Care Plan Goals: The patient was advised of the examination and x-ray results during the visit. The patient was placed in a left knee immobilizer and advised to use his walker for support when ambulating. The patient should follow-up with his primary care facility in approximately 1 week for further evaluation and management. If the patient has any additional symptoms or concerns, the patient should either visit his primary care facility or return to the emergency department. Sepsis Event Note (ED) - Focused Exam Vital Signs: Vital Signs Temp Pulse Resp BP Pulse Ox 05/17/20 15:33 36.4 C 90 20 130/62 93 L - My Orders Last 24 Hours: My Active Orders 05/17/20 17:02 DME for Discharge [COMM] Urgent - Assessment/Plan Last 24 Hours: My Active Orders 05/17/20 17:02 DME for Discharge [COMM] Urgent
--- NOTE | 2020-05-17 16:37 | CR ---
EXAMINATION: Tibia Fibula Lt SEX: Male AGE: 69 years CLINICAL HISTORY: 69-year-old male injured left lower extremity in ground-level fall this morning. Interpretation (AP lateral views tibia/fibular): Abnormal. 1. Skeletal deformity mid diaphysis left tibia anterolaterally has the appearance of old healed fracture but the differential considerations include nonossifying fibroma, chronic infection, or (unlikely) fibrous dysplasia. No previous comparison films immediately available. 2. No sign of acute long bone tibia or fibular fracture. 3. No foreign bodies or acute inflammatory periostitis. 4. Chronic arthritic changes ipsilateral knee joint. 5. Arteriovascular calcifications in the soft tissues.
--- NOTE | 2020-05-17 16:39 | CR ---
EXAMINATION: Foot Comp Min 3V Lt SEX: Male AGE: 69 years CLINICAL HISTORY: 73-year-old male discomfort "associated with ground-level fall this morning. Interpretation: Old fragmented avulsion fracture base of the fifth metatarsal. 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 Generalized osteopenia and extensive arteriovascular calcifications. No foreign bodies. *No sign of acute left foot fracture or dislocation. Large heel spur is identified respectively at the insertion of the Achilles tendon and plantar aponeurosis on the os calcis.
[2020-05-17] MEDS ORDERED: Acetaminophen 325 MG Tab PO PRN (18:59)
[2020-05-17] MEDS ORDERED: Morphine 2 MG/ML SYRINGE IVPUSH PRN (18:59)
[2020-05-17] MEDS ORDERED: CINACALCET 30 MG PO SCH (19:15)
[2020-05-17] MEDS ORDERED: Enoxaparin 30 MG/0.3 ML Syringe SUBCUT SCH (19:15)
--- NOTE | 2020-05-17 19:30 | PCM.HP ---
H&P History of Present Illness - General Date of Service: 05/17/20 Admit Problem/Dx: Admission Diagnosis/Problem Admission Diagnosis/Problem Immobility Source of Information: Patient History Limitations: Reports: No Limitations - History of Present Illness Initial Comments - Free Text/Narative: Patient is a 69 yo male who presents s/p fall secondary to lower extremity weakness. As a result of the fall, the patient sustained a fracture of his closed left fibula. Due to inability for he or his to care for him, the patient is being admitted for observation until placement arrangements can be made. Of note patient was recently admitted to [facility] for sepsis. He was sent to rehab and was discharged from rehab today and it was at this time that the patient fell. As a result of the fall he also missed his HD session today. Other than left leg pain, the patient denies any other symptoms at this time. Onset of Symptoms: Reports: Today, Sudden Symptom Onset Date: 05/17/20 Duration of Symptoms: Reports: Minutes:, Constant Location: Reports: Lower Extremity, Left Quality: Reports: Ache, Sharp Severity: Mild Improves with: Reports: None Worsens with: Reports: Movement Associated Symptoms: Reports: No Other Symptoms Bilateral Foot Pain Score (Numeric/FACES): 5 - Related Data Allergies/Adverse Reactions: Allergies Allergy/AdvReac Type Severity Reaction Status Date / Time No Known Allergies Allergy Verified 05/17/20 18:24 Home Medications: Home Meds Metoprolol Tartrate 25 mg PO BID 01/21/15 [History] Multivitamin [Multivitamins] 1 tab PO DAILY 12/15/17 [History] Cinacalcet [Sensipar] 30 mg PO DAILY 12/17/17 [History] Clopidogrel [Plavix] 75 mg PO DAILY 12/17/17 [History] Amitriptyline [Elavil] 25 mg PO BEDTIME 07/08/19 [History] Pantoprazole Sodium [Protonix] 20 mg PO DAILY 07/08/19 [History] Sevelamer Carbonate [Renvela] 1,600 mg PO TIDMEALS 07/08/19 [History] Insulin Aspart [NovoLOG] 12 unit SUBCUT .SUPPER 04/07/20 [History] Insulin Aspart [NovoLOG] 15 unit SUBCUT .BREAKFASTLUNCH 04/07/20 [History] Calcium Acetate [PhosLo] 667 mg PO TIDMEALS 05/01/20 [History] Docusate Sodium [Colace] 100 mg PO BID PRN 05/01/20 [History] Gabapentin [Neurontin] 100 mg PO TID 05/01/20 [History] oxyCODONE HCl [Oxycodone HCL] 10 mg PO Q12HR PRN 05/01/20 [History] Acetaminophen 650 mg PO Q4HR PRN 05/17/20 [History] Midodrine 2.5 mg PO TIDMEALS 05/17/20 [History] QUEtiapine [SEROquel] 25 mg PO BEDTIME 05/17/20 [History] atorvaSTATin [Lipitor] 40 mg PO BEDTIME 05/17/20 [History] Calcium Acetate [PhosLo] 667 mg PO WITHSNACKS 05/18/20 [History] Non-Formulary Medication [NF Drug] 1 each PO WITHSNACKS each 05/18/20 [Rx] Past Medical History - Past Health History Medical/Surgical History: Denies Medical/Surgical History HEENT History: Reports: Impaired Vision Cardiovascular History: Reports: Afib, Other (See Below) Other Cardiovascular History: myocardial effusions Respiratory History: Reports: Other (See Below) Other Respiratory History: covid and influenza B Gastrointestinal History: Reports: GERD, PUD Genitourinary History: Reports: Dialysis Musculoskeletal History: Reports: Gout, Other (See Below) Other Musculoskeletal History: diabetic neuropathy Neurological History: Reports: Neuropathy, Diabetic Psychiatric History: Reports: None Endocrine/Metabolic History: Reports: Diabetes, Type II, Obesity/BMI 30+ Hematologic History: Reports: None Immunologic History: Reports: None Oncologic (Cancer) History: Reports: None Dermatologic History: Reports: None - Infectious Disease History Infectious Disease History: Reports: Influenza, Novel Coronavirus Other Infectious Disease History: covid - Past Surgical History GI Surgical History: Reports: Cholecystectomy Social & Family History - Family History Family Medical History: No Pertinent Family History - Tobacco Use Tobacco Use Status *Q: Never Tobacco User - Caffeine Use Caffeine Use: Reports: None - Recreational Drug Use Recreational Drug Use: No - Living Situation & Occupation Living situation: Reports: , with Spouse Occupation: Disabled H&P Review of Systems - Review of Systems: Review Of Systems: See Below General: Reports: No Symptoms HEENT: Reports: No Symptoms Pulmonary: Reports: No Symptoms Cardiovascular: Reports: No Symptoms Gastrointestinal: Reports: No Symptoms Genitourinary: Reports: No Symptoms Musculoskeletal: Reports: Leg Pain, Joint Pain Skin: Reports: No Symptoms Psychiatric: Reports: No Symptoms Neurological: Reports: No Symptoms Hematologic/Lymphatic: Reports: No Symptoms Immunologic: Reports: No Symptoms Exam - Exam Exam: See Below - Vital Signs Vital Signs: Last Vital Signs Temp 97.6 F 05/17/20 15:33 Pulse 90 05/17/20 15:33 Resp 20 05/17/20 15:33 BP 130/62 05/17/20 15:33 Pulse Ox 93 L 05/17/20 15:33 Weight: 235 lb 3.2 oz - Exam General: Alert, Oriented HEENT: EOMI Neck: Trachea Midline Lungs: Clear to Auscultation, Normal Respiratory Effort Cardiovascular: Regular Rate GI/Abdominal Exam: Soft, No Distention Extremities: Leg Pain, Limited Range of Motion Skin: Warm, Dry Neurological: Abnormal Gait Neuro Extensive - Mental Status: Alert, Oriented x3, Normal Mood/Affect Neuro Extensive - Motor, Sensory, Reflexes: Abnormal Gait Psychiatric: Alert, Normal Affect, Normal Mood - Patient Data Lab Results Last 24 hrs: Laboratory Results - last 24 hr 05/17/20 Range/Units 18:44 POC Glucose 86 (83-110) mg/dl Result Diagrams: 05/18/20 06:20 05/18/20 06:20 Problem List Initiated/Reviewed/Updated: Yes Orders Last 24hrs: Active Orders 24 hr Category Date Time Status Admission Diagnosis [ADT] Urgent ADT 05/17/20 17:39 Ordered Admission Status [Patient Status] [ADT] Routine ADT 05/17/20 17:39 Active Antiembolic Devices [RC] PER UNIT ROUTINE Care 05/17/20 19:04 Ordered Bedrest Bathroom Privileges [RC] ASDIRECTED Care 05/17/20 18:59 Ordered Intake and Output [RC] QSHIFT Care 05/17/20 19:01 Ordered Oxygen Therapy [RC] PRN Care 05/17/20 18:59 Ordered VTE/DVT Education [RC] PER UNIT ROUTINE Care 05/17/20 18:59 Ordered Vital Signs [RC] Q4H Care 05/17/20 18:59 Ordered Regular Diet [DIET] Diet 05/17/20 Dinner Ordered Acetaminophen [TylenoL] Med 05/17/20 18:59 Ordered 650 mg PO Q4H PRN Amitriptyline [Elavil] Med 05/17/20 21:00 Ordered 25 mg PO BEDTIME Calcium Acetate [PhosLo] Med 05/18/20 08:00 Ordered 667 mg PO TIDMEALS Cinacalcet [Sensipar] Med 05/17/20 19:15 Ordered 30 mg PO .MOTUWETHFR Clopidogrel [Plavix] Med 05/18/20 09:00 Ordered 75 mg PO DAILY Enoxaparin [Lovenox] Med 05/17/20 19:15 Ordered 30 mg SUBCUT DAILY Gabapentin [Neurontin] Med 05/17/20 21:00 Ordered 100 mg PO TID Insulin Aspart [NovoLOG] Med 05/17/20 19:15 Ordered 12 unit SUBCUT .SUPPER Insulin Aspart [NovoLOG] Med 05/17/20 19:15 Ordered 15 unit SUBCUT .BREAKFASTLUNCH Metoprolol Tartrate [Lopressor] Med 05/17/20 21:00 Ordered 25 mg PO BID Midodrine Med 05/18/20 08:00 Ordered 2.5 mg PO TIDMEALS Morphine Med 05/17/20 18:59 Ordered 2 mg IVPUSH Q2H PRN Pantoprazole Sodium [Protonix] Med 05/18/20 09:00 Ordered 20 mg PO DAILY QUEtiapine [SEROqueL] Med 05/17/20 21:00 Ordered 25 mg PO BEDTIME Sevelamer Carbonate Med 05/18/20 08:00 Ordered 1,600 mg PO TIDMEALS atorvaSTATin [Lipitor] Med 05/17/20 21:00 Ordered 40 mg PO BEDTIME oxyCODONE Med 05/17/20 18:59 Ordered 5 mg PO Q4H PRN DME for Discharge [COMM] Urgent Oth 05/17/20 17:02 Ordered Sequential Compression Device [OM.PC] Per Unit Routine Oth 05/17/20 19:02 Ordered Resuscitation Status Routine Resus Stat 05/17/20 18:59 Ordered Medication Orders Acetaminophen (Tylenol) 650 mg PO Q4H PRN PRN Reason: Pain (Mild 1-3)/fever Amitriptyline HCl (Elavil) 25 mg PO BEDTIME [facility] Clopidogrel Bisulfate (Plavix) 75 mg PO DAILY [facility] Enoxaparin Sodium (Lovenox) 30 mg SUBCUT DAILY [facility] Gabapentin (Neurontin) 100 mg PO TID [facility] Metoprolol Tartrate (Lopressor) 25 mg PO BID [facility] Midodrine (Midodrine) 2.5 mg PO TIDMEALS [facility] Morphine Sulfate (Morphine) 2 mg IVPUSH Q2H PRN PRN Reason: Pain (severe 7-10) Non-Formulary Medication (Atorvastatin [Lipitor]) 40 mg PO BEDTIME [facility] Non-Formulary Medication (Insulin Aspart [Novolog]) 12 unit SUBCUT .SUPPER [facility] Non-Formulary Medication (Insulin Aspart [Novolog]) 15 unit SUBCUT .BREAKFASTLUNCH [facility] Non-Formulary Medication (Pantoprazole Sodium [Protonix]) 20 mg PO DAILY [facility] Non-Formulary Medication (Sevelamer Carbonate) 1,600 mg PO TIDMEALS [facility] Non-Formulary Medication (Cinacalcet [Sensipar]) 30 mg PO .MOTUWETHFR [facility] Non-Formulary Medication (Calcium Acetate [Phoslo]) 667 mg PO TIDMEALS [facility] Oxycodone HCl (Oxycodone) 5 mg PO Q4H PRN PRN Reason: Pain (moderate 4-6) Quetiapine Fumarate (Seroquel) 25 mg PO BEDTIME [facility] Assessment/Plan Comment:: - L fibula fracture: No surgical intervention. Patient placed in a immobilizer Pain management with IV morphine Plan for placement in the AM - ESRD HD: MWF Patient missed today's session Will need HD Friday Continue all home medications as prescribed
[2020-05-17] MEDS ORDERED: ATORVASTATIN 40 MG PO SCH (21:00)
[2020-05-17] MEDS ORDERED: QUEtiapine 25 MG Tab PO SCH (21:00)
[2020-05-17] MEDS ORDERED: Gabapentin 100 MG Cap PO SCH (21:00)
[2020-05-17] MEDS ORDERED: atorvaSTATin 20 MG Tab PO SCH (21:00)
[2020-05-17] MEDS ORDERED: Metoprolol Tartrate 25 MG Tab PO SCH (21:00)
[2020-05-17] MEDS ORDERED: AMITRIPTYLINE 25 MG PO SCH (21:00)
[2020-05-17] MEDS ORDERED: Amitriptyline 25 MG Tab PO SCH (21:00)
[2020-05-17] MEDS ORDERED: QUETIAPINE 25 MG PO SCH (21:00)
[2020-05-17] MEDS: METOPROLOL TARTRATE 25 MG PO SCH (21:14)
[2020-05-17] MEDS: GABAPENTIN 100 MG PO SCH (21:15)
[2020-05-17] MEDS: oxyCODONE 5 MG Tab PO PRN (23:06)
[2020-05-18] MEDS: oxyCODONE 5 MG Tab PO PRN (03:59)
[2020-05-18] MEDS ORDERED: PANTOPRAZOLE SODIUM 20 MG PO SCH (06:00)
[2020-05-18 06:57] LABS: ANION GAP 11.9 mEq/L (7-13)
[2020-05-18] MEDS ORDERED: MIDODRINE 2.5 MG PO SCH (08:00)
[2020-05-18] MEDS ORDERED: INSULIN ASPART SUBCUT SCH ×2 (08:00→18:00)
[2020-05-18] MEDS ORDERED: SEVELAMER CARBONATE PO SCH (08:00)
[2020-05-18] MEDS ORDERED: CALCIUM ACETATE 667 MG PO SCH (08:00)
[2020-05-18] MEDS: METOPROLOL TARTRATE 25 MG PO SCH (08:57)
[2020-05-18] MEDS ORDERED: CINACALCET 30 MG PO SCH (09:00)
[2020-05-18] MEDS ORDERED: CLOPIDOGREL 75 MG PO SCH (09:00)
[2020-05-18] MEDS ORDERED: Heparin Sodium 5,000 Units/ML Vial SUBCUT SCH (09:15)
[2020-05-18] MEDS ORDERED: 50% Dextrose in Water 50 ML Syringe IV PRN (09:28)
[2020-05-18] MEDS ORDERED: Insulin Lispro 100 Units/ML 3 ML Vial SUBCUT SCH ×2 (09:28→18:00)
[2020-05-18] MEDS ORDERED: Glucagon,Human Recombinant 1 MG Vial IM PRN (09:28)
[2020-05-18] MEDS: GABAPENTIN 100 MG PO SCH (09:43)
--- NOTE | 2020-05-18 11:51 | PCM.DCSUM1 ---
Discharge Summary - Hospital Course Free Text/Narrative:: Patient is a 69 yo male who presented s/p fall secondary to lower extremity weakness. As a result of the fall, the patient sustained a fracture of his closed left fibula. Due to inability for he or his to care for him, the patient is being admitted for observation until placement arrangements can be made. Of note patient was recently admitted to [facility] for sepsis. He was sent to rehab and was discharged from rehab on and it was at this time that the patient fell. As a result of the fall he also missed his HD session on 05/18/20. Other than left leg pain, the patient denies any other symptoms at this time. Because of the patients inability to transfer and because of worsening confusion due to uremia the patient was transferred to [facility] for urgent dialysis and placement. Diagnosis: Stroke: No - Discharge Data Discharge Date: 05/18/20 Discharge Disposition: DC/Tfer to Acute Hospital 02 Condition: Good - Referral to Home Health Primary Care Physician: Mary Kay Clifford NP - Discharge Diagnosis/Problem(s) (1) Chronic kidney disease on chronic dialysis SNOMED Code(s): 028473761 ICD Code: N18.6 - END STAGE RENAL DISEASE; Z99.2 - DEPENDENCE ON RENAL DIALYSIS Status: Acute Current Visit: Yes (2) Closed left fibular fracture SNOMED Code(s): 661896001, 95692344522523638 ICD Code: S82.402A - UNSP FRACTURE OF SHAFT OF LEFT FIBULA, INIT FOR CLOS FX Status: Acute Current Visit: Yes Qualifiers: Encounter type: initial encounter Fibula location: proximal Fracture morphology: unspecified fracture morphology Qualified Code(s): S82.832A - Other fracture of upper and lower end of left fibula, initial encounter for closed fracture - Patient Instructions Diet: Usual Diet as Tolerated Activity: Bedrest - Discharge Plan *PRESCRIPTION DRUG MONITORING PROGRAM REVIEWED*: Not Applicable *COPY OF PRESCRIPTION DRUG MONITORING REPORT IN PATIENT ZAY: Not Applicable Home Medications: Home Meds Metoprolol Tartrate 25 mg PO BID 01/21/15 [History] Multivitamin [Multivitamins] 1 tab PO DAILY 12/15/17 [History] Cinacalcet [Sensipar] 30 mg PO DAILY 12/17/17 [History] Clopidogrel [Plavix] 75 mg PO DAILY 12/17/17 [History] Amitriptyline [Elavil] 25 mg PO BEDTIME 07/08/19 [History] Pantoprazole Sodium [Protonix] 20 mg PO DAILY 07/08/19 [History] Sevelamer Carbonate [Renvela] 1,600 mg PO TIDMEALS 07/08/19 [History] Insulin Aspart [NovoLOG] 12 unit SUBCUT .SUPPER 04/07/20 [History] Insulin Aspart [NovoLOG] 15 unit SUBCUT .BREAKFASTLUNCH 04/07/20 [History] Calcium Acetate [PhosLo] 667 mg PO TIDMEALS 05/01/20 [History] Docusate Sodium [Colace] 100 mg PO BID PRN 05/01/20 [History] Gabapentin [Neurontin] 100 mg PO TID 05/01/20 [History] oxyCODONE HCl [Oxycodone HCL] 10 mg PO Q12HR PRN 05/01/20 [History] Acetaminophen 650 mg PO Q4HR PRN 05/17/20 [History] Midodrine 2.5 mg PO TIDMEALS 05/17/20 [History] QUEtiapine [SEROquel] 25 mg PO BEDTIME 05/17/20 [History] atorvaSTATin [Lipitor] 40 mg PO BEDTIME 05/17/20 [History] Calcium Acetate [PhosLo] 667 mg PO WITHSNACKS 05/18/20 [History] Non-Formulary Medication [NF Drug] 1 each PO WITHSNACKS each 05/18/20 [Rx] Patient Handouts: How to Use a Knee Immobilizer, [id number] - Discharge Summary/Plan Comment DC Time >30 min.: Yes Discharge Summary/Plan Comment: Patient is being transferred by [facility] ambulance for urgert HD - General Info Date of Service: 05/18/20 Admission Dx/Problem (Free Text: Admission Diagnosis/Problem Admission Diagnosis/Problem Immobility Functional Status: Reports: Pain Controlled, Tolerating Diet, Urinating - Review of Systems General: Reports: No Symptoms HEENT: Reports: No Symptoms Pulmonary: Reports: No Symptoms Cardiovascular: Reports: No Symptoms Gastrointestinal: Reports: No Symptoms Genitourinary: Reports: No Symptoms Musculoskeletal: Reports: No Symptoms, Leg Pain Skin: Reports: No Symptoms Neurological: Reports: No Symptoms Psychiatric: Reports: Confusion - Patient Data Vitals - Most Recent: Last Vital Signs Temp 98.9 F 05/18/20 07:43 Pulse 90 05/18/20 08:57 Resp 20 05/18/20 07:43 BP 93/47 L 05/18/20 08:57 Pulse Ox 95 05/18/20 07:43 Weight - Most Recent: 236 lb 3.2 oz I&O - Last 24 hours: Intake & Output 05/17/20 05/18/20 05/18/20 22:59 06:59 14:59 Intake Total 400 200 200 Balance 400 200 200 Lab Results - Last 24 hrs: Laboratory Results - last 24 hr 05/17/20 05/17/20 05/18/20 Range/Units 18:44 20:59 06:20 WBC 8.3 (5.0-10.0) 10^3/uL RBC 2.60 L (4.6-6.2) 10^6/uL Hgb 7.8 L D (14.0-18.0) g/dL Hct 24.3 L (40.0-54.0) % MCV 93.5 (80-100) fL MCH 30.0 (27.0-34.0) pg MCHC 32.1 L (33.0-35.0) g/dL Plt Count 188 D (150-450) 10^3/uL Sodium (136-145) mmol/L Potassium (3.5-5.1) mmol/L Chloride (98-107) mmol/L Carbon Dioxide (21-32) mmol/L Anion Gap (7-13) mEq/L BUN (7-18) mg/dL Creatinine (0.70-1.30) mg/dL Est Cr Clr Drug Dosing mL/min Estimated GFR (MDRD) Glucose (74-99) mg/dL POC Glucose 86 101 (83-110) mg/dl Calcium (8.5-10.1) mg/dL 05/18/20 05/18/20 05/18/20 Range/Units 06:20 07:56 11:23 WBC (5.0-10.0) 10^3/uL RBC (4.6-6.2) 10^6/uL Hgb (14.0-18.0) g/dL Hct (40.0-54.0) % MCV (80-100) fL MCH (27.0-34.0) pg MCHC (33.0-35.0) g/dL Plt Count (150-450) 10^3/uL Sodium 133 L (136-145) mmol/L Potassium 4.9 D (3.5-5.1) mmol/L Chloride 95 L (98-107) mmol/L Carbon Dioxide 31 (21-32) mmol/L Anion Gap 11.9 (7-13) mEq/L BUN 31 H (7-18) mg/dL Creatinine 6.40 H* (0.70-1.30) mg/dL Est Cr Clr Drug Dosing 11.09 mL/min Estimated GFR (MDRD) 9 Glucose 119 H (74-99) mg/dL POC Glucose 128 H 119 H (83-110) mg/dl Calcium 10.2 H (8.5-10.1) mg/dL Med Orders - Current: Current Medications Acetaminophen (Tylenol) 650 mg PO Q4H PRN PRN Reason: Pain (Mild 1-3)/fever Amitriptyline HCl (Elavil) 25 mg PO BEDTIME [facility] Last Admin: 05/17/20 21:14 Dose: 25 mg Documented by: Clopidogrel Bisulfate (Plavix) 75 mg PO DAILY [facility] Last Admin: 05/18/20 08:56 Dose: 75 mg Documented by: Dextrose/Water (Dextrose 50% In Water) 50 ml IV ASDIRECTED PRN PRN Reason: Hypoglycemia Gabapentin (Neurontin) 100 mg PO TID [facility] Last Admin: 05/18/20 09:43 Dose: Not Given Documented by: Glucagon (Glucagen) 1 mg IM ASDIRECTED PRN PRN Reason: Hypoglycemia Heparin Sodium (Porcine) (Heparin Sodium) 5,000 units SUBCUT BID [facility] Last Admin: 05/18/20 09:52 Dose: 5,000 units Documented by: Insulin Human Lispro (Humalog) 15 unit SUBCUT BID@0800,1200 [facility] Last Admin: 05/18/20 09:42 Dose: 15 units Documented by: Insulin Human Lispro (Humalog) 12 unit SUBCUT WITHDINNER [facility] Metoprolol Tartrate (Lopressor) 25 mg PO BID [facility] Last Admin: 05/18/20 08:57 Dose: Not Given Documented by: Midodrine (Midodrine) 2.5 mg PO TIDMEALS [facility] Last Admin: 05/18/20 08:55 Dose: 2.5 mg Documented by: Morphine Sulfate (Morphine) 2 mg IVPUSH Q2H PRN PRN Reason: Pain (severe 7-10) Pantoprazole Sodium [Protonix] 20 Mg # Own Med# 20 mg PO ACBREAKFAST [facility] Last Admin: 05/18/20 05:41 Dose: 20 mg Documented by: Sevelamer Carbonate (#Own Med#) 1,600 mg PO TIDMEALS [facility] Last Admin: 05/18/20 08:55 Dose: 1,600 mg Documented by: Non-Formulary Medication (Calcium Acetate [Phoslo]) 667 mg PO TIDMEALS [facility] Atorvastatin 40mg (Tab #Own Med#) 40 each PO BEDTIME [facility] Last Admin: 05/17/20 21:15 Dose: 40 each Documented by: Non-Formulary Medication (Cinacalcet [Sensipar]) 30 mg PO DAILY [facility] Non-Formulary Medication (Nf Drug) 1 each PO WITHSNACKS [facility] Oxycodone HCl (Oxycodone) 5 mg PO Q4H PRN PRN Reason: Pain (moderate 4-6) Last Admin: 05/18/20 03:59 Dose: 5 mg Documented by: Quetiapine Fumarate (Seroquel) 25 mg PO BEDTIME [facility] Last Admin: 05/17/20 21:17 Dose: 25 mg Documented by: Discontinued Medications Amitriptyline HCl (Elavil) 25 mg PO BEDTIME [facility] Atorvastatin Calcium (Lipitor) 40 mg PO BEDTIME [facility] Gabapentin (Neurontin) 100 mg PO TID [facility] Metoprolol Tartrate (Lopressor) 25 mg PO BID [facility] Insulin Aspart [ Novolog] Pen #Own Med# 12 unit SUBCUT WITHDINNER [facility] Insulin Aspart [ Novolog] Pen #Own Med# 15 unit SUBCUT BID@0800,1200 [facility] Last Admin: 05/18/20 09:43 Dose: Not Given Documented by: Non-Formulary Medication (Cinacalcet [Sensipar]) 30 mg PO .MOTUWETHFR [facility] Quetiapine Fumarate (Seroquel) 25 mg PO BEDTIME [facility] - Exam General: Reports: Alert, Oriented HEENT: Reports: Pupils Equal, Pupils Reactive, EOMI, Mucous Membr. Moist/[place] Neck: Reports: Trachea Midline Lungs: Reports: Normal Respiratory Effort Cardiovascular: Reports: Regular Rate GI/Abdominal Exam: Soft, No Distention Extremities: Limited Range of Motion Skin: Reports: Warm, Dry Neurological: Reports: No New Focal Deficit Psy/Mental Status: Reports: Alert, Normal Affect, Normal Mood
[2020-05-18 11:59] VITALS: BP 109/50; PULSE 89
[2020-05-18] MEDS ORDERED: Non-Formulary Medication 1 Each PO SCH (21:00)
== END 2020-05-18 11:42 ==
LOC: DL.ED 15:12 → DL.MS 17:39 → DL.ED 17:57
PROVIDERS: ADMIT Internal Medicine; ATTEND Internal Medicine
DX: S82.402A Unspecified fracture of shaft of left fibula, initial encounter for closed fracture (principal); E11.22 Type 2 diabetes mellitus with diabetic chronic kidney disease; N18.6 End stage renal disease; I48.91 Unspecified atrial fibrillation; E11.40 Type 2 diabetes mellitus with diabetic neuropathy, unspecified; K21.9 Gastro-esophageal reflux disease without esophagitis; E66.9 Obesity, unspecified; Z79.899 Other long term (current) drug therapy; Z79.4 Long term (current) use of insulin; Z90.49 Acquired absence of other specified parts of digestive tract; W19.XXXA Unspecified fall, initial encounter; Z99.2 Dependence on renal dialysis
CPT/HCPCS: 36415; 73590-LT; 73630-LT; 80048; 82962; 85027; 96372; 99284; 99284-25; A9270-GY; G0378; J1644; J1815-GY

== ENCOUNTER 2021-09-08 17:21 | Observation (INO) | payer MEDICARE, BC ==
[2021-09-08] MEDS ORDERED: Docusate Sodium 100 MG Cap PO PRN (21:41)
[2021-09-08] MEDS ORDERED: Acetaminophen 325 MG Tab PO PRN (21:45)
[2021-09-08] MEDS ORDERED: Sodium Chloride 0.9% 10 ML Syringe FLUSH PRN (21:45)
[2021-09-08] MEDS ORDERED: 50% Dextrose in Water 50 ML Syringe IVPUSH PRN (21:47)
[2021-09-08 22:01] LABS: CORONAVIRUS COVID-19 NAA NEGATIVE (NEGATIVE)
[2021-09-08] MEDS: Heparin Sodium 5,000 Units/ML Vial SUBCUT SCH (23:37)
[2021-09-09] MEDS ORDERED: Pantoprazole 40 MG Tab.CR PO SCH (06:00)
[2021-09-09] MEDS: Heparin Sodium 5,000 Units/ML Vial SUBCUT SCH ×3 (06:44→21:28)
[2021-09-09 07:11] LABS: ANION GAP 16.3 mEq/L (7-13)
[2021-09-09] MEDS: Insulin Lispro 100 Units/ML 3 ML Vial SUBCUT SCH ×4 (08:40→21:23)
[2021-09-09] MEDS: Sodium Chloride 0.9% 10 ML Syringe FLUSH SCH ×2 (08:41→21:31)
[2021-09-09] MEDS: Multivitamin Tab PO SCH (08:57)
[2021-09-09] MEDS: Midodrine 2.5 MG Tab PO SCH ×2 (08:58→13:07)
[2021-09-09] MEDS ORDERED: CINACALCET 90 MG PO SCH (09:00)
[2021-09-09] MEDS ORDERED: Clopidogrel 75 MG Tab PO SCH (09:00)
[2021-09-09] MEDS ORDERED: Gabapentin 100 MG Cap PO SCH (09:00)
[2021-09-09] MEDS: Non-Formulary Medication 1 Each (Calcium Acetate [Phoslo] 667 MG Cap) PO SCH ×2 (11:06→12:25)
[2021-09-09] MEDS: Metoprolol Tartrate 25 MG Tab PO SCH ×2 (11:10→21:28)
[2021-09-09] MEDS ORDERED: Sodium Polystyrene Sulfonate 15 GM/60 ML Susp 60 ML Bot PO ONE (11:21)
[2021-09-09] MEDS: oxyCODONE 5 MG Tab PO PRN ×2 (12:18→16:03)
[2021-09-09] MEDS: RENVELA 800 MG PO SCH ×2 (16:03→17:22)
[2021-09-09] MEDS: AMITRIPTYLINE 50 MG PO SCH (21:26)
[2021-09-09] MEDS: CINACALCET PO SCH (21:27)
[2021-09-09] MEDS: atorvaSTATin 20 MG Tab PO SCH (21:28)
[2021-09-09] MEDS: QUEtiapine 25 MG Tab PO SCH (21:31)
[2021-09-10] MEDS ORDERED: Pantoprazole 40 MG Tab.CR PO SCH (06:00)
[2021-09-10] MEDS: Heparin Sodium 5,000 Units/ML Vial SUBCUT SCH ×2 (06:02→13:20)
[2021-09-10] MEDS ORDERED: MIDODRINE 2.5 MG PO SCH (09:00)
[2021-09-10] MEDS ORDERED: PANTOPRAZOLE 20 MG PO SCH (09:00)
[2021-09-10] MEDS ORDERED: Clopidogrel 75 MG Tab **OWN MED PO SCH (09:00)
[2021-09-10] MEDS ORDERED: Silver Sulfadiazine 1% Crm 50 GM Tube TOP SCH (09:00)
[2021-09-10] MEDS ORDERED: Bacitracin Oint 1 GM U/D Packet TOP SCH (09:00)
[2021-09-10] MEDS: Insulin Lispro 100 Units/ML 3 ML Vial SUBCUT SCH ×4 (09:13→21:02)
[2021-09-10] MEDS: RENVELA 800 MG PO SCH ×3 (09:15→18:04)
[2021-09-10] MEDS: Multivitamin Tab PO SCH (09:16)
[2021-09-10] MEDS: Metoprolol Tartrate 25 MG Tab PO SCH ×2 (09:16→21:04)
[2021-09-10] MEDS: Sodium Chloride 0.9% 10 ML Syringe FLUSH SCH (09:20)
[2021-09-10] MEDS ORDERED: Sodium Polystyrene Sulfonate 15 GM/60 ML Susp 60 ML Bot PO ONE (19:28)
[2021-09-10] MEDS: Amitriptyline 25 MG Tab ONE ×2 (21:03→21:10)
[2021-09-10 21:04] VITALS: BP 114/60; PULSE 79
[2021-09-10] MEDS: atorvaSTATin 20 MG Tab PO SCH (21:04)
[2021-09-10] MEDS: QUEtiapine 25 MG Tab PO SCH (21:04)
[2021-09-10] MEDS: AMITRIPTYLINE 50 MG PO SCH (21:07)
[2021-09-10] MEDS: CINACALCET PO SCH (21:09)
== END 2021-09-10 21:25 ==
LOC: DL.ED 17:21 → DL.MS 20:58
PROVIDERS: ADMIT Internal Medicine; ATTEND Internal Medicine
DX: S72.112A Displaced fracture of greater trochanter of left femur, initial encounter for closed fracture (principal); E11.22 Type 2 diabetes mellitus with diabetic chronic kidney disease; H54.7 Unspecified visual loss; I13.2 Hypertensive heart and chronic kidney disease with heart failure and with stage 5 chronic kidney disease, or end stage renal disease; I50.9 Heart failure, unspecified; E78.5 Hyperlipidemia, unspecified; I48.11 Longstanding persistent atrial fibrillation; N18.6 End stage renal disease; I25.10 Atherosclerotic heart disease of native coronary artery without angina pectoris; F39 Unspecified mood [affective] disorder; E87.5 Hyperkalemia; K21.9 Gastro-esophageal reflux disease without esophagitis; E11.40 Type 2 diabetes mellitus with diabetic neuropathy, unspecified; E66.9 Obesity, unspecified; Z68.29 Body mass index [BMI] 29.0-29.9, adult; Z99.2 Dependence on renal dialysis; Z79.4 Long term (current) use of insulin; Z79.899 Other long term (current) drug therapy; Z79.02 Long term (current) use of antithrombotics/antiplatelets; W19.XXXA Unspecified fall, initial encounter; Z20.822 Contact with and (suspected) exposure to COVID-19
CPT/HCPCS: 0240U; 36415; 73502; 73700; 80048; 82947; 84132; 85025; 96372; 99284; 99285; A9270; G0378; J1644; J3490